=== PATIENT | female | born 1955 | race Caucasian/White ===

== ENCOUNTER 2021-07-05 09:05 | Emergency (ER) | payer OTHER, SELFPAY ==
[2021-07-05 09:10] VITALS: BP 129/79; PULSE 54; RESP 16; TEMP 36.6; O2SAT 98; BMI 25.0
--- NOTE | 2021-07-05 10:17 | ED.BACK ---
HPI - Back Pain/Injury General Chief Complaint: Back Pain/Injury Stated Complaint: hurt back x7 days Time Seen by Provider: 07/05/21 10:15 Source: patient and family History of Present Illness HPI Narrative: Patient is a 66-year-old female with early-onset dementia, diabetes presenting today with back pain for the last 3-5 days. She states that she was putting furniture sliders under furniture. She was on the ground when she lifted and tried to slide under there. Since then she has had back pain all across her lower lumbar area. She did not fall. She has no numbness or tingling in her lower extremities. No loss of bowel or bladder. She has not had fever or chills. She has been taking Tylenol ibuprofen home. She also has Flexeril and methocarbamol at home that do not seem to be helping. She has appointment with her primary care provider in 2 days. Related Data Previous Rx's Medication Instructions Recorded hydrocodone 5 mg-acetaminophen 325 1 tab PO Q6H PRN #10 tab 07/05/21 mg tablet Review of Systems Review of Systems Narrative: GENERAL: Denies chills, fatigue, malaise, fever, sweats, travel HEENT: Denies sinus pain, ear pain, sore throat, difficulty swallowing, neck pain RESPIRATORY: Denies dyspnea, cough, wheezing, hemoptysis, sputum. CARDIOVASCULAR: Denies chest pain, palpitations, orthopnea, edema GASTROINTESTINAL: Denies nausea, vomiting, abdominal pain, diarrhea, constipation, melena. : Denies dysuria, frequency, incontinence, hematuria, urinary retention, flank pain. MUSCULOSKELETAL: See HPI SKIN: No rash, no erythema, no pruritus NEUROLOGIC: Denies weakness, dizziness, headache, numbness, change in speech, confusion PSYCHIATRIC: No concerning psychosocial issues. 12 point review of systems is negative except for those stated above and HPI Patient History Social History Smoking Status: Never smoker Smoking Status: Never smoker alcohol intake frequency: holidays/special occasions only Substance Use Type: does not use Exam Initial Vital Signs Initial Vital Signs: Vital Signs Temperature 97.9 F 07/05/21 09:10 Pulse Rate 54 L 07/05/21 09:10 Respiratory Rate 16 07/05/21 09:10 Blood Pressure 129/79 07/05/21 09:10 Pulse Oximetry 98 07/05/21 09:10 GENERAL: Pleasant well-appearing 66 old female no acute distress CARDIOVASCULAR: peripheral pulses in tact, cap refill <2 sec RESPIRATORY: No respiratory distress, speaks in full sentences without difficulty BACK: No vertebral tenderness no step-off painful all cost lower lumbar area EXTREMITIES: Normal range of motion, no clubbing or edema. Neurovascularly intact NEUROLOGICAL: Cranial nerves II through XII grossly intact. Normal gait and speech. Sensation lower extremities intact SKIN: Warm, dry, no petechiae, no rashes or lesions. Course Orders Ordered: Discontinued Medications Ketorolac Tromethamine (Ketorolac 30 Mg/Ml Vial) 30 mg IM NOW ONE Stop: 07/05/21 10:27 Last Admin: 07/05/21 10:45 Dose: 30 mg Documented by: MICHAEL Vital Signs Vital signs: Vital Signs - 8 hr 07/05/21 09:10 07/05/21 11:00 Temperature 97.9 F Pulse Rate 54 L 54 L Respiratory Rate 16 18 Blood Pressure 129/79 125/75 Pulse Oximetry 98 94 MDM - Back Pain/Injury MDM Narrative Medical decision making narrative: Patient's symptoms are consistent with muscle strain and spasm. She did not fall. She has no focal deficits at this time no need for imaging. She has multiple muscle relaxants at home. Will not prescribe any more of those have her discuss with her primary about that but will give her some hydrocodone. Has appointment with her PCP in 2 days. Discharge Plan Departure Patient Disposition: Home Clinical Impression: Muscle spasm Instructions: DI for Back Spasm Activity Restrictions/Additional Instructions: *You have been diagnosed with muscle spasm *What to do: At this time light stretching and heating pad along with light massage. Try to increase activity as tolerated no strenuous activity or heavy lifting. If no improvement may require physical therapy or outpatient MRI *Continue to take medications as directed Ibuprofen 600 mg every 6 hours if needed for [id number] pain [place] 1 tablet every 6 hours if needed for severe pain *Follow up with your primary care provider in 2-3 days or call [phone] *Return to ER if you should have increasing pain numbness tingling or weakness of lower extremities loss of urine or stool or any new, worsening or concerning symptoms CONTROLLED SUBSTANCE DISCHARGE (Narcotoic/benzodiazepine/Flexeril/Phenergan) 1. You have been prescribed narcotic medications, it does have acetaminophen/Tylenol/paracetamol in it, DO NOT TAKE MORE THAN 4,00mg in 24 hours of Tylenol. TRAMADOL DOES NOT CONTAIN TYLENOL 2. Please understand that we cannot provide further refills of narcotics, benzodiazepines or controlled substances through the ED and her pain management will need to be through your provider. 3. While on these medications you cannot drive or operate heavy machinery. 4. You cannot sign legal documents or perform any duties such as this. 5. As long as you're taking opiate pain medications he should also be taking a stool softener such as Colace, Dulcolax, MiraLAX or prune juice, to help avoid constipation. Prescriptions: New hydrocodone-acetaminophen 5-325 mg tablet 1 tab PO Q6H PRN (Reason: pain) Qty: 10 0RF
[2021-07-05] MEDS: KETOROLAC 30 MG/ML VIAL IM (10:45)
[2021-07-05 11:00] VITALS: BP 125/75; PULSE 54; RESP 18; O2SAT 94
== END 2021-07-05 11:04 | disposition home or self-care (01) ==
PROVIDERS: Emergency Provider Emergency Medicine
DX: M62.830 Muscle spasm of back (principal); X50.0XXA Overexertion from strenuous movement or load, initial encounter
CPT/HCPCS: 96372; 99283; J1885

== ENCOUNTER 2022-01-20 10:27 | Observation (INO) | payer OTHER, SELFPAY ==
[2022-01-20] VITALS (12 sets, daily range): BP systolic 129–151; BP diastolic 55–67; PULSE 56–61; RESP 15–18; TEMP 36.9–37.3; O2SAT 94–99; BMI 24.2
--- NOTE | 2022-01-20 11:01 | ED_ITS ---
HPI - Fall General Chief Complaint: Fall Stated Complaint: GLF Time Seen by Provider: 01/20/22 11:01 Source: family and EMS Mode of arrival: EMS History of Present Illness HPI Narrative: Patient is a 66-year-old female. Arrived by EMS for evaluation of injuries that she sustained after she was found on the floor this morning. Patient's who states he sleeps in a different room because the patient sleeps in a chair found her lying on the ground this morning. She does have a known T12 spinal fracture from a prior fall. She was complaining of right wrist pain. Patient is unable to provide any history as to why she fell. She does seem somewhat confused about the situation. She knows she is in the hospital but not sure why she is here. She stated that she was sitting on the floor ?working on a project ?which is why she was on floor. The states the patient has no prior medical problems. There was 1 report that he had region that she has some history of dementia this is not specifically diagnosed in her problem list in the EMR. Related Data Previous Rx's Medication Instructions Recorded hydrocodone 5 mg-acetaminophen 325 1 tab PO Q6H PRN pain #10 tabs 07/05/21 mg tablet Allergies Allergy/AdvReac Type Severity Reaction Status Date / Time No Known Drug Allergies Allergy Verified 01/20/22 10:35 Review of Systems Constitutional Comments: Denies headache Eyes Comments: No changes in vision Cardiovascular Comments: Denies chest pain Respiratory Comments: Denies shortness of breath Gastrointestinal Comments: No abdominal pain Musculoskeletal Comments: Right wrist pain and back pain Integumentary/Breasts Skin/Breast: Reports system reviewed and no additional complaints, except as documented Hematologic/Lymphatic On Anticoagulants: No Patient History Medical History Dementia Diabetes Social History Smoking Status: Never smoker Smoking Status: Never smoker alcohol intake frequency: holidays/special occasions only Substance Use Type: does not use Exam Initial Vital Signs Initial Vital Signs: Vital Signs Temperature 98.9 F 01/20/22 10:35 Pulse Rate 56 L 01/20/22 10:35 Respiratory Rate 15 01/20/22 10:35 Blood Pressure 146/67 H 01/20/22 10:35 Pulse Oximetry 98 01/20/22 10:35 Oxygen Delivery Method 01/20/22 10:35 Const General: cooperative, comfortable and No ill appearing HENMT Head: contusion (Over right forehead and right temporal) Nose: external nose normal Mouth: oral mucosae normal Chest Chest: No crepitus and No tenderness Resp Effort & Inspection: normal respiratory effort Auscultation: clear to auscultation bilaterally Cardio Rate: regular rate Rhythm: regular rhythm GI Inspection: normal to inspection Back/Spine/Pelvis Other: Tenderness in the lower thoracic region Skin Other: Bruising over right forehead and right temporal Neuro Other: Alert to person. She knows that she is in the hospital but does not know what city. She does know the year. Does not know the situation as to why she is here. Extrem General: normal to inspection, capillary refill normal and No edema Other: Discomfort with palpation of the right wrist Scores GCS Hamilton coma scale eye opening: Spontaneous Hamilton coma scale verbal response: Confused Hamilton coma scale motor response: Obey commands Hamilton coma scale total score: 14 Course Orders Ordered: ED Orders 01/20/22 10:35 Complete Blood Count AUTO DIFF Stat Comprehensive Metabolic Panel Stat Lipase Stat 01/20/22 11:01 CT head/brain wo con Stat 01/20/22 12:01 XR thoracic spine 3V Stat XR wrist RT min 3V Stat 01/20/22 12:05 XR hip w pel if done RT 2V Stat 01/20/22 14:04 EKG-12 Lead Stat 01/20/22 14:05 CK [Creatine Kinase] Stat Vital Signs Vital signs: Vital Signs - 8 hr 01/20/22 10:35 01/20/22 11:24 01/20/22 11:26 Temperature 98.9 F Pulse Rate 56 L 56 L Respiratory Rate 15 Blood Pressure 146/67 H 140/64 Pulse Oximetry 98 97 Oxygen Delivery Method Room Air 01/20/22 11:26 01/20/22 11:30 01/20/22 11:30 Temperature Pulse Rate 58 L 56 L Respiratory Rate Blood Pressure 131/61 Pulse Oximetry 99 99 Oxygen Delivery Method 01/20/22 11:45 01/20/22 11:45 01/20/22 12:50 Temperature Pulse Rate 56 L 58 L Respiratory Rate Blood Pressure 129/60 Pulse Oximetry 97 97 Oxygen Delivery Method 01/20/22 12:52 01/20/22 12:52 01/20/22 13:00 Temperature Pulse Rate 57 L Respiratory Rate Blood Pressure 140/63 138/63 Pulse Oximetry 98 Oxygen Delivery Method 01/20/22 13:00 01/20/22 13:15 01/20/22 13:15 Temperature Pulse Rate 58 L 57 L Respiratory Rate Blood Pressure 136/63 Pulse Oximetry 96 96 Oxygen Delivery Method MDM - Fall Lab Data Attestation: I reviewed the patient's lab results. Result diagrams: 01/20/22 10:35 01/20/22 10:35 Labs: Lab Results 01/20/22 01/20/22 Range/Units 10:35 10:35 WBC 13.1 H (4.5-11.0) X10^3/uL RBC 4.54 (4.0-5.2) X10^6/uL Hgb 14.5 (12.0-16.0) g/dL Hct 43.7 (36-46) % MCV 96.4 (80-100) fL MCH 31.9 (26-34) PG MCHC 33.1 (30-36) % RDW 12.8 (11.6-14.8) % Plt Count 200 (150-400) X10^3/uL Neut % (Auto) 84.9 H (50-75) % Lymph % (Auto) 8.2 L (25-40) % [place] % (Auto) 6.7 (3-14) % Eos % (Auto) 0.1 L (2-4) % Baso % (Auto) 0.1 (0-2) % Neut # (Auto) 43979 H (0438-0411) /uL Lymph # (Auto) 1100 (2712-1706) /uL [place] # (Auto) 900 (0-900) /uL Eos # (Auto) 0 (0-450) /uL Baso # (Auto) 0 (0-100) /uL Sodium 142 (137-145) mmol/L Potassium 4.0 (3.4-5.1) mmol/L Chloride 102 (98-107) mmol/L Carbon Dioxide 29 (22-32) mmol/L BUN 11 (7-17) mg/dL Creatinine 0.57 (0.52-1.04) mg/dL Estimated GFR > 60 (>60) mL/min BUN/Creatinine Ratio 19.3 (6-22) Glucose 176 H (80-110) mg/dL Calcium 10.1 (8.4-10.2) mg/dL Total Bilirubin 1.0 (0.2-1.3) mg/dL AST 43 H (14-36) IU/L ALT 34 (<35) IU/L Alkaline Phosphatase 75 (38-126) U/L Total Protein 7.7 (6.3-8.2) g/dL Albumin 4.6 (3.5-5.0) g/dL Globulin 3.1 (1.7-4.1) g/dL Albumin/Globulin Ratio 1.5 (1.0-2.8) Lipase 78 (23-300) U/L Imaging Data CT scan - head: Radiologist's Impression: [address] [address] [address] Scan Report Signed Patient: Sal Shaver MR#: [id number] : 1955 Acct:[id number] Age/Sex: 66 / F Date of Service: 01/20/22 Loc: ED Accession Number: [id number] ?? Procedure: CT head/brain wo con Ordering Provider: Bro Barreto D.O. PROCEDURE:? CT HEAD/BRAIN WO CON ? INDICATIONS:? fall right frontal contusion ? TECHNIQUE:? Noncontrast 4.5 mm thick angled axial sections acquired from the foramen magnum to the vertex, with coronal and sagittal reformats.? For radiation dose reduction, the following was used:? automated exposure control, adjustment of mA and/or kV according to patient size.? ? COMPARISON:? None. ? FINDINGS:? Image quality:? Excellent.? ? CSF spaces:? Basal cisterns are patent.? No extra-axial fluid collections.? The ventricles are symmetric in size and shape.? ? Brain:? No intracranial bleeds or masses.? There is cerebral volume loss for age, with resultant ventricular and sulcal prominence.? There are periventricular and deep white matter chronic small vessel ischemic changes.? There is intracranial internal carotid artery atherosclerosis.? ? Skull and face:? There is a right temporal region scalp hematoma seen.? No underlying calvarial fracture can be seen.? Calvarium and visualized facial bones appear intact, without suspicious lesions.? Incidental note is made of hyperostosis frontalis. This is not considered to be pathologic in a woman of this age. ? Sinuses:? Visualized sinuses and mastoids are clear.? IMPRESSION:? Right scalp hematoma, without an associated fracture. ? No acute intracranial hemorrhage is seen.? ? No acute intracranial process is seen.? ? Note is made of age-appropriate brain parenchymal volume loss and chronic small vessel ischemic changes. ? ? Dictated by: Santiago Silva M.D. on 01/20/2022 at 10:15 ? ? Approved by: Santiago Silva M.D. on 01/20/2022 at 10:16? Extremity x-ray #1: Radiologist's Impression: [address] [address] XRay Report Signed Patient: Sal Shaver MR#: [id number] : 1955 Acct:[id number] Age/Sex: 66 / F Date of Service: 01/20/22 Loc: ED Accession Number: [id number] ?? Procedure: XR wrist RT min 3V Ordering Provider: Bro Barreto D.O. PROCEDURE:? XR WRIST RT MIN 3V ? INDICATIONS: pain after fall ? TECHNIQUE:? 4 views of the wrist were acquired.? ? COMPARISON:? None. ? FINDINGS:? ? Bones:? No fractures or dislocations.? No suspicious bony lesions.? Distal radial fixation hardware is intact. ? Scaphoid view:? The scaphoid is intact. ? Soft tissues:? No suspicious soft tissue calcifications.? ? IMPRESSION:? No acute radiographic findings. If pain persists, followup imaging in 5-7 days is recommended to exclude occult fracture. ? ? Dictated by: Siomara Fisher M.D. on 01/20/2022 at 13:22 ? ? Approved by: Siomara Fisher M.D. on 01/20/2022 at 13:22? Extremity x-ray #2: Radiologist's Impression: [address] [address] XRay Report Signed Patient: Sal Shaver MR#: [id number] : 1955 Acct:[id number] Age/Sex: 66 / F Date of Service: 01/20/22 Loc: ED Accession Number: [id number] ?? Procedure: XR hip w pel if done RT 2V Ordering Provider: Bro Barreto D.O. PROCEDURE:? XR HIP W PEL IF DONE RT 2V ? INDICATIONS:? hip pain after fall ? TECHNIQUE:? AP pelvis with lateral view(s) of the right hip(s).? ? COMPARISON:? None. ? FINDINGS:? ? Bones:? No fractures or dislocations.? Pelvic ring appears intact.? No suspicious bony lesions.? ? Soft tissues:? The visualized bowel gas pattern is normal.? No suspicious soft tissue calcifications.? ? ? IMPRESSION:? No acute radiographic findings.? If pain persists, consider CT of the pelvis to exclude occult fracture. ? Dictated by: Siomara Fisher M.D. on 01/20/2022 at 13:19 ? ? Approved by: Siomara Fisher M.D. on 01/20/2022 at 13:19? t spine: Radiologist's Impression: [place] [address] XRay Report Signed Patient: Sal Shaver MR#: [id number] : 1955 Acct:[id number] Age/Sex: 66 / F Date of Service: 01/20/22 Loc: ED Accession Number: [id number] ?? Procedure: XR thoracic spine 3V Ordering Provider: Bro Barreto D.O. PROCEDURE:? XR THORACIC SPINE 3V ? INDICATIONS:? known t spine fx with increase pain after fall ? TECHNIQUE:? 3 views of the thoracic spine were acquired.? ? COMPARISON:? None. ? FINDINGS:? ? Bones:? There are 12 pairs of ribs.? Anterior wedging is present at the T12 vertebral body with approximately 36% vertebral body height loss.? There is diffuse intervertebral disc space narrowing and endplate sclerosis. ? Soft tissues:? No paravertebral stripe thickening.? ? ? IMPRESSION:? ? 1. Degenerative change. ? 2. Anterior wedging at T12.? The acuity of this finding is unknown without prior comparison studies.? Acute compression deformity could be considered in the differential diagnosis if the patient reports focal pain in this region.? ? ? Dictated by: Siomara Fisher M.D. on 01/20/2022 at 13:19 ? ? Approved by: Siomara Fisher M.D. on 01/20/2022 at 13:21?? MDM Narrative Medical decision making narrative: Somewhat of a confusing story as to how she fell. The patient does not remember. She is a contusion right forehead and right zoroastrianism. X-rays here in the emergency department is unremarkable. She does have the T12 spinal fracture which is not new from this visit today. Attempted to stand the patient at bedside. She was able to stand but seemed to be very uneasy with standing and seems to be somewhat confused about what we are asking her to do and even to take a few steps. This is new for the patient. Unsure if this is her underlying early dementia or potentially a concussion but the states this is not normal for her. I did discuss the case with Dr. Schroeder on-call for Hospital Medicine who will admit. Discussed the need for admission with the patient's who expressed understanding and agreement. Discharge Plan Departure Patient Disposition: Admitted as Observation Clinical Impression: Closed head injury, Concussion, Forehead contusion, Confusion, Compression fracture of T12 vertebra Admit Date/Time: 01/20/22 14:06 Admit Provider: [place] Schroeder
--- NOTE | 2022-01-20 11:01 | DI.CT.S_ITS ---
PROCEDURE: CT HEAD/BRAIN WO CON INDICATIONS: fall right frontal contusion TECHNIQUE: Noncontrast 4.5 mm thick angled axial sections acquired from the foramen magnum to the vertex, with coronal and sagittal reformats. For radiation dose reduction, the following was used: automated exposure control, adjustment of mA and/or kV according to patient size. COMPARISON: None. FINDINGS: Image quality: Excellent. CSF spaces: Basal cisterns are patent. No extra-axial fluid collections. The ventricles are symmetric in size and shape. Brain: No intracranial bleeds or masses. There is cerebral volume loss for age, with resultant ventricular and sulcal prominence. There are periventricular and deep white matter chronic small vessel ischemic changes. There is intracranial internal carotid artery atherosclerosis. Skull and face: There is a right temporal region scalp hematoma seen. No underlying calvarial fracture can be seen. Calvarium and visualized facial bones appear intact, without suspicious lesions. Incidental note is made of hyperostosis frontalis. This is not considered to be pathologic in a woman of this age. Sinuses: Visualized sinuses and mastoids are clear. IMPRESSION: Right scalp hematoma, without an associated fracture. No acute intracranial hemorrhage is seen. No acute intracranial process is seen. Note is made of age-appropriate brain parenchymal volume loss and chronic small vessel ischemic changes. Dictated by: Santiago Silva M.D. on 01/20/2022 at 10:15 Approved by: Santiago Silva M.D. on 01/20/2022 at 10:16
[2022-01-20 11:19] LABS: Add Manual Diff / Slide Review NO; Basophils Absolute Auto 0 /uL (0-100); Basophils Percent Auto 0.1 % (0-2); Eosinophils Absolute Auto 0 /uL (0-450); Eosinophils Percent Auto 0.1 % (2-4); Hematocrit 43.7 % (36-46); Hemoglobin 14.5 g/dL (12.0-16.0); Lymphocytes Absolute Auto 1100 /uL (1100-4500); Lymphocytes Percent Auto 8.2 % (25-40); Mean Corpuscular HGB Conc 33.1 % (30-36); Mean Corpuscular Hemoglobin 31.9 PG (26-34); Mean Corpuscular Volume 96.4 fL (80-100); Monocytes Absolute Auto 900 /uL (0-900); Monocytes Percent Auto 6.7 % (3-14); Neutrophils Absolute Auto 11100 /uL (1500-7000); Neutrophils Percent Auto 84.9 % (50-75); Platelet Count 200 X10^3/uL (150-400); Red Blood Cell Count 4.54 X10^6/uL (4.0-5.2); Red Cell Distribution Width 12.8 % (11.6-14.8); White Blood Cell Count 13.1 X10^3/uL (4.5-11.0)
[2022-01-20 11:32] LABS: Alanine Aminotransferase 34 IU/L (<35); Albumin 4.6 g/dL (3.5-5.0); Albumin Globulin Ratio 1.5 (1.0-2.8); Alkaline Phosphatase 75 U/L (38-126); Aspartate Aminotransferase 43 IU/L (14-36); BUN Creatinine Ratio 19.3 (6-22); Blood Urea Nitrogen 11 mg/dL (7-17); Calcium 10.1 mg/dL (8.4-10.2); Carbon Dioxide 29 mmol/L (22-32); Chloride 102 mmol/L (98-107); Estimated Glomerular Filt Rate > 60 mL/min (>60); Globulin 3.1 g/dL (1.7-4.1); Glucose 176 mg/dL (80-110); HEMOLYSIS < 15 (0-50); Lipase 78 U/L (23-300); Sodium 142 mmol/L (137-145); Total Protein 7.7 g/dL (6.3-8.2)
--- NOTE | 2022-01-20 12:01 | DI.RAD.S_ITS ---
PROCEDURE: XR THORACIC SPINE 3V INDICATIONS: known t spine fx with increase pain after fall TECHNIQUE: 3 views of the thoracic spine were acquired. COMPARISON: None. FINDINGS: Bones: There are 12 pairs of ribs. Anterior wedging is present at the T12 vertebral body with approximately 36% vertebral body height loss. There is diffuse intervertebral disc space narrowing and endplate sclerosis. Soft tissues: No paravertebral stripe thickening. IMPRESSION: 1. Degenerative change. 2. Anterior wedging at T12. The acuity of this finding is unknown without prior comparison studies. Acute compression deformity could be considered in the differential diagnosis if the patient reports focal pain in this region. Dictated by: Siomara Fisher M.D. on 01/20/2022 at 13:19 Approved by: Siomara Fisher M.D. on 01/20/2022 at 13:21
--- NOTE | 2022-01-20 12:01 | DI.RAD.S_ITS ---
PROCEDURE: XR WRIST RT MIN 3V INDICATIONS: pain after fall TECHNIQUE: 4 views of the wrist were acquired. COMPARISON: None. FINDINGS: Bones: No fractures or dislocations. No suspicious bony lesions. Distal radial fixation hardware is intact. Scaphoid view: The scaphoid is intact. Soft tissues: No suspicious soft tissue calcifications. IMPRESSION: No acute radiographic findings. If pain persists, followup imaging in 5-7 days is recommended to exclude occult fracture. Dictated by: Siomara Fisher M.D. on 01/20/2022 at 13:22 Approved by: Siomara Fisher M.D. on 01/20/2022 at 13:22
--- NOTE | 2022-01-20 12:05 | DI.RAD.S_ITS ---
PROCEDURE: XR HIP W PEL IF DONE RT 2V INDICATIONS: hip pain after fall TECHNIQUE: AP pelvis with lateral view(s) of the right hip(s). COMPARISON: None. FINDINGS: Bones: No fractures or dislocations. Pelvic ring appears intact. No suspicious bony lesions. Soft tissues: The visualized bowel gas pattern is normal. No suspicious soft tissue calcifications. IMPRESSION: No acute radiographic findings. If pain persists, consider CT of the pelvis to exclude occult fracture. Dictated by: Siomara Fisher M.D. on 01/20/2022 at 13:19 Approved by: Siomara Fisher M.D. on 01/20/2022 at 13:19
[2022-01-20 14:47] LABS: COVID19 -Nasal RAPID Negative (Negative)
[2022-01-20 15:21] LABS: Troponin I < 0.012 ng/mL (0.01-0.034)
[2022-01-20 15:26] LABS: Prolactin 4.4 ng/mL (3.0-18.6)
--- NOTE | 2022-01-20 15:28 | DI.MRI.S_ITS ---
PROCEDURE: MR HEAD/BRAIN WO CON INDICATIONS: encephalopathy TECHNIQUE: Non-contrast axial T1 spin echo, axial T2 fast spin echo, sagittal and axial FLAIR, coronal T2 fast spin echo, axial gradient echo, axial diffusion and ADC through the brain. COMPARISON: None. FINDINGS: Image quality: Excellent. CSF spaces: Ventricles appear symmetric in size and shape. Basal cisterns are patent. No extra-axial fluid collections. Brain: No intracranial bleeds or mass effects. There is cerebral volume loss for age. There are periventricular and deep white matter chronic small vessel ischemic changes. Brainstem appears normal. Diffusion-weighted images show no acute ischemic insults. No chronic ischemic insults. Normal intravascular flow voids are present. Skull and face: Calvarial bone marrow is normal in signal. Orbits are normal. Sinuses: Sinuses and mastoids are clear. IMPRESSION: No acute intracranial abnormality. Global cerebral volume loss and chronic microvascular ischemic changes, both advanced for age and overall moderate to severe. Dictated by: Lyndon Ward M.D. on 01/21/2022 at 11:09 Approved by: Lyndon Ward M.D. on 01/21/2022 at 11:22
[2022-01-20 15:41] LABS: TSH w/ Reflex to FT4 0.71 uIU/mL (0.47-4.68)
--- NOTE | 2022-01-20 15:55 | PT.IIE ---
Medical History (Last Updated 01/20/22 @ 16:19 by Petra Naqvi RN) Aortic valve stenosis, mild Dementia Diabetes Dyslipidemia Environmental allergies Intractable headache Memory loss Migraines Obstructive sleep apnea Right-sided low back pain with sciatica Spondylarthritis Type 2 diabetes mellitus with hyperglycemia, without long-term current use of insulin Physical Therapy Inpatient Evaluation/Re-Eval M1 PT/OT-IP Prior Functional Status Start: 01/20/22 16:31 Freq: NEEDED Status: Active Protocol: Document 01/20/22 15:55 AB (Rec: 01/20/22 16:47 AB [id number]) Medical Review Prior Functional Status Medical History Reviewed Yes Communication able to make needs known Mobility and Gait pt stated that she is independent with all mobilities and ambulation without AD. per spouse: pt had back compression fracture ~ 6 months ago and since then, has been sleeping on a recliner chair. Social History Household Members spouse Living Arrangements Apartment/Condo Number of Floors (Floors) One Floor Number of Stairs To Enter/Railing? pt lives in a basement house/ apartment with one step to enter Home Environment Standard Height Toilet,Walk in Shower Home Equipment Hand Held Shower Additional Social History Comment spouse stated that he cannot assist pt due to his back issues has a rocker recliner chair M2 PT-IP Current Condition Start: 01/20/22 16:31 Freq: NEEDED Status: Active Protocol: Document 01/20/22 15:55 AB (Rec: 01/20/22 16:47 AB [id number]) Physical Therapy Current Condition Current Condition Evaluation Date 01/20/22 Treatment Diagnosis s/p fall; concussion; difficulty in walking Onset Date 01/20/22 M3 PT-IP Subjective Start: 01/20/22 16:31 Freq: NEEDED Status: Active Protocol: Document 01/20/22 15:55 AB (Rec: 01/20/22 16:47 AB [id number]) Subjective Physical Therapy Visit Type Type Initial Evaluation Visit Start Time 15:55 Visit Stop Time 16:26 Total Visit Minutes 31 Number of PERSONAL COACH Visits 0 Physical Therapy Visit Comments Patient Comments agreeable to do PT Therapy Pain Assessment Pain When Pain Assessed At Rest Pain Present Pain Present Pain Reported Location Generalized Intensity 10 Scale Used Numeric (0 - 10) Pain Management Techniques Distraction,Modification of Treatment,Re-positioning M4 PT-IP Mobility and Gait Start: 01/20/22 16:31 Freq: NEEDED Status: Active Protocol: Document 01/20/22 15:55 AB (Rec: 01/20/22 16:47 AB [id number]) PT-Bed Mobility Assessment Rolling Type of Rolling Log Rolling Level of Assist Maximal Assistance Supine to Sit Supine to Sit Maximum Assistance,1 Person Assistance,2 Person Assistance Sit to Supine Sit to Supine Maximum Assistance,2 Person Assistance Scooting Scooting to Edge of Bed Maximum Assistance PT-Transfer Assessment Sit to and From Stand Sit to and from Stand Maximum Assistance,1 Person Assistance,2 Person Assistance ,Use of Upper Extremities Equipment Transfer Assistive Device Gait Belt,Front Wheeled Walker Orthotic/Prosthetic Devices or Brace: No Comments Mobility Comments spouse in room with pt. pt c/ o overall body pain with more emphasis on R wrist. spouse stated that pt had previous wrist surgery with implant ~ 30 years ago. pt also had T12 compression fracture ~ 6 months ago. spouse also stated that pt has memory issues. informed pt regarding back precautions. BP in supine: 151/71. completed supine to sit log roll max a x 1-2 and max cues. able to sit on EOB min A. completed sit to stand max A x 1-2 and max cues but unable to tolerate much standing and sat back on EOB after ~ 5 sec. pt attempted to scoot towards HOB but unable. agreed to stand again and take steps towards HOB. completed sit to stand max A x 2 and max cues. max A x 2 and max cues for side stepping towards HOB using FWW. max cues with all tasks. completed log roll sit to supine max A x 2 and max cues. max A x 2 for positioning in bed. call light and table placed within reach. Gait Assessment Comments Gait Comments side stepping towards HOB for positioning max A x 2 using FWW PT-Balance Assessment Sitting Balance and Reactions Static Sitting Balance Ability Fair Dynamic Sitting Balance Ability Fair Standing Balance and Reactions Static Standing Balance Ability Poor Dynamic Standing Balance Ability Poor Device Used FWW M5 PT-IP Objective Assessments Start: 01/20/22 16:31 Freq: NEEDED Status: Active Protocol: Document 01/20/22 15:55 AB (Rec: 01/20/22 16:47 AB [id number]) Orientation Orientation/Cognition Level of Alertness Confusional State Orientation Name Language Function Ability Hard of Hearing Safety Awareness Decreased Safety Awareness Memory Description Short Term Impaired,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 Impaired Gross Range of Motion Lower Extremity ROM Assessment Bilaterally Impaired Impairments pain limiting movement Strength Lower Extremity Strength Hip 3+/5 Knee 3+/5 Sensation Assessment Sensation Gross Sensation Right UE Impaired,Left UE Impaired Sensation Description Numbness Muscle Tone Muscle Tone WNL Yes M6 PT-IP Treatment Start: 01/20/22 16:31 Freq: NEEDED Status: Active Protocol: Document 01/20/22 15:55 AB (Rec: 01/20/22 16:47 [email or web address] Therapy Treatment Education Education Provided Precautions,Safety M7 PT-IP Assessment and Plan Start: 01/20/22 16:31 Freq: NEEDED Status: Active Protocol: Document 01/20/22 15:55 AB (Rec: 01/20/22 16:47 AB [email or web address]) PT Summary Assessment and Plan Potential Rehabilitation Potential Fair Status of Condition at Evaluation Evolving Summary Impairments Pain,ROM,Strength,Balance, Coordination,Sensation,Tone, Cognition,Bed Mobility, Transfers,Gait,Activity Tolerance Assessment Summary Pt s/p fall and c/o generalized pain of 11/30. Imaging results unremarkable aside from T12 compression fracture and per pt's spouse, pt had for at least 6 months. pt requiring max A x 2 with mobility using FWW and with c/ o increase pain affecting mobility level and activity tolerance. pt will not have assistance at home as spouse will not be able to assist due to his back issues. pt at this time will require SNF rehab. will continue to assess progress. Goals Bed Mobility Goal Minimal Assistance Transfer Goal Minimal Assistance,Front Wheeled Walker Gait Goal Minimal Assistance,Front Wheel Walker Gait Distance 30 Other Goals improve bed mobility, transfers and ambulation using FWW/least restrictive AD/ without AD 100 ft SBA up/down 1 steps using AD SBA Days to Meet Goals 10 Frequency of Treatment Frequency Of Treatment Once a Day Treatment Plan Physical Therapy Treatment Plan Bed Mobility Training,Transfer Training,Gait Training, Therapeutic Exercise,Balance Retraining,Discharge Planning, Hot or Cold Pack,Neuromuscular Re-ed,Coordination Retraining ,Manual Therapy Precautions Lumbar Precautions Log Roll,No Twisting,Limit Bending,Lifting Restriction of 10 lbs,Gait Belt above Incisional Area Other Precautions falls Recommendations To Nursing Amount of Assist Needed PT/OT Assist Only,Mechanical Lift Discharge Recommendations PT Discharge Recommendations SNF Rehab Equipment Needed for Home Before FWW if pt goes home Discharge Transportation Needs at Discharge Wheelchair/Cabulance,Stretcher /Ambulance
--- NOTE | 2022-01-20 16:31 | DI.ECHO.S_ITS ---
Interpretation Summary The study quality was technically difficult. Diastolic parameters suggest probable normal left ventricular diastolic function and normal filling pressures. The right ventricle is normal in size and function. The left atrium is mildly dilated. There is moderate aortic stenosis. Pulmonary artery pressures cannot be estimated because of the lack of a measurable TR jet velocity. Procedure: A two-dimensional transthoracic echocardiogram with color flow and Doppler was performed. There is no prior echocardiogram noted for this patient. Best from Apical window. The study quality was technically difficult. The patient was in sinus rhythm with heart rates between 53-64 bpm during the exam. Left Ventricle: The left ventricle is normal in size and wall thickness. The ejection fraction is estimated to be 70-75%. Diastolic parameters suggest probable normal left ventricular diastolic function and normal filling pressures. Right Ventricle: The right ventricle is normal in size and function. Atria: The left atrium is mildly dilated. Right atrial size is normal. There is no Doppler evidence for an interatrial shunt. Mitral Valve: There is moderate mitral annular calcification. The mitral valve leaflets appear mildly thickened, but open well. There is trace mitral regurgitation. Aortic Valve: The aortic valve is moderately calcified. There is moderate aortic stenosis. The peak aortic velocity is 3.2 m/sec. The aortic valve mean gradient is 21 mmHg. The calculated aortic valve area is 1.5 cm2. No aortic regurgitation is present. Tricuspid Valve: The tricuspid valve is normal in structure and function. There is a trace or physiologic amount of tricuspid regurgitation. Pulmonary artery pressures cannot be estimated because of the lack of a measurable TR jet velocity. Pulmonic Valve: The pulmonic valve is not well visualized. Great Vessels: The aortic root is not well visualized. The ascending aorta could not be visualized. The IVC is of normal diameter and collapses greater than 50% with a sniff. This suggests a low right atrial pressure of 3 mm Hg. Pericardium/ Pleura There is no pericardial effusion. There is no pleural effusion. MMode/2D Measurements & Calculations LVIDd: 4.0 cm LVOT diam: 2.2 cm LVIDs: 2.7 cm Ao Arch Diam (Prox Trans): 2.4 cm FS: 32.5 % IVSd: 0.89 cm LVPWd: 0.64 cm LV santa. diameter/BSA (cm/m^2): 2.3 LV sys. diameter/BSA (cm/m^2): 1.5 LA A2 area: 20.7 cm2 RA long axis: 4.8 cm LA A4 area: 18.1 cm2 RA area: 13.5 cm2 LA length (vol): 5.6 cm RA vol: 32.5 ml LA vol: 56.6 ml RA : 18.4 ml/m2 LA vol index: 32.0 ml/m2 IVC diam: 1.7 cm RVD1 (basal): 3.4 cm RVD2 (mid): 3.3 cm TAPSE: 2.7 cm Doppler Measurements & Calculations Ao V2 max: 317.3 cm/sec LVOT Max Ray: 129.1 cm/sec Ao V2 mean: 203.9 cm/sec LV V1 max P.7 mmHg Ao max P.3 mmHg LV V1 VTI: 32.2 cm Ao mean P.4 mmHg DIPAK(I,D): 1.7 cm2 Ao V2 VTI: 72.1 cm DIPAK(V,D): 1.5 cm2 sev ratio: 0.45 DIPAK indexed to BSA (cm^2/m^2): 0.96 MV E max ray: 121.3 cm/sec TR max ray: 219.8 cm/sec MV A max ray: 146.8 cm/sec TR max P.3 mmHg MV E/A: 0.83 Med Peak E' Ray: 8.7 cm/sec E/E' med: 14.0 Lat Peak E' Ray: 8.8 cm/sec E/E' lat: 13.8 E/e' average: 13.9 MV dec time: 0.31 sec MVA(VTI): 2.1 cm2 MV V2 mean: 79.7 cm/sec SV(LVOT): 122.1 ml MV mean P.0 mmHg MV V2 VTI: 57.6 cm Reading Physician:05:37 PM
[2022-01-20 16:52] LABS: Creatine Kinase 91 U/L (30-135)
--- NOTE | 2022-01-20 18:00 | DI.RAD.S_ITS ---
PROCEDURE: XR CHEST 1V INDICATIONS: confusion, pna? TECHNIQUE: One view of the chest was acquired. COMPARISON: None. FINDINGS: Surgical changes and devices: None. Lungs and pleura: Lungs are clear. No pleural effusions or pneumothorax. Mediastinum: Mediastinal contours appear normal. Heart size is normal. Bones and chest wall: No suspicious bony lesions. Overlying soft tissues appear unremarkable. IMPRESSION: No acute cardiopulmonary disease. Dictated by: Yarely Boyer M.D. on 01/20/2022 at 21:27 Approved by: Yarely Boyer M.D. on 01/20/2022 at 21:29
--- NOTE | 2022-01-20 18:17 | PM.HP.1 ---
History of Present Illness History of Present Illness Date Patient Seen: 01/20/22 Time Patient Seen: 16:00 Chief complaint: GLF Narrative: Ms. Shaver is a 66W with PMH documented in chart of dementia, diabetes, and mild aortic valve stenosis who presents to the hospital after being found on the ground. Patient is not able to tell me any history of how or when she fell. Per report from family and the ED she and her sleep in separate rooms. When he checked on her today she was on the floor. She has a contusion to her head. She was otherwise denying any significant symptoms with no chest pain, shortness of breath, fevers, chills. She is unable to tell me her medical history when asked In the ED, workup was done vitals notable for afebrile, bradycardic in the 50s. EKG not done. Labs notable for WBC of 13, creatinine 0.57. Glucose 176. Trop negative. CK 91. TSH 0.71, prolactin 4.4. UA negative. Chest xray ordered and pending final read. CT head with no acute process. Hip, wrist, and thoracic spine xray with no acute process. She was admitted for further workup. Family history: patient acutely encephalopathic and unable to provide Social history: denies smoking, drinking, other substance use Patient History Medical History Aortic valve stenosis, mild Dementia Diabetes Dyslipidemia Environmental allergies Intractable headache Memory loss Migraines Obstructive sleep apnea Right-sided low back pain with sciatica Spondylarthritis Type 2 diabetes mellitus with hyperglycemia, without long-term current use of insulin Family & Social History Social History: household members spouse Prior Living Arrangements Apartment/Condo Safety & Behavioral: Feels Safe in Current Yes Environment Been Physically Hurt or No Threatened By a Person Tobacco & Substance use: Smoking Status Never smoker alcohol intake frequency holiday/special occasion Substance Use Type does not use Meds Home Medications and Allergies Home Medications Medication Instructions Recorded Confirmed Type aspirin 81 mg tablet,delayed 81 mg PO DAILY 01/20/22 01/20/22 History release chromium 100 mcg tablet 100 mcg PO DAILY 01/20/22 01/20/22 History cyanocobalamin (vitamin B-12) 1,000 mcg PO DAILY 01/20/22 01/20/22 History 1,000 mcg tablet diclofenac sodium 1 % topical gel 4 g topical QID PRN Pain (Scale 01/20/22 01/20/22 History Score 1-3) donepezil 10 mg tablet 10 mg PO BEDTIME 01/20/22 01/20/22 History flaxseed oil 1,000 mg capsule 1,000 mg PO DAILY 01/20/22 01/20/22 History hydrocodone 7.5 mg-acetaminophen 1 tab PO Q8H PRN Pain (Scale Score 01/20/22 01/20/22 History 325 mg tablet 1-3) melatonin 5 mg tablet 5 mg PO BEDTIME PRN Sleep 01/20/22 01/20/22 History metformin 500 mg tablet,extended 500 mg PO QPM 01/20/22 01/20/22 History release 24 hr methocarbamol 500 mg tablet 1,000 mg PO TID PRN Muscle Spasm 01/20/22 01/20/22 History multivitamin with iron-mineral 1 tab PO DAILY 01/20/22 01/20/22 History omega-3 fatty acids-fish oil 684 1 cap PO DAILY 01/20/22 01/20/22 History mg-1,200 mg capsule,delayed release propranolol 20 mg tablet 20 mg PO BID 01/20/22 01/20/22 History sumatriptan succinate 100 mg 100 mg PO Q2-4H PRN Migraine 01/20/22 01/20/22 History tablet (Imitrex) Headache Allergies Allergy/AdvReac Type Severity Reaction Status Date / Time gabapentin Allergy Intermediate Vomiting Verified 01/20/22 16:20 Review of Systems Review of Systems Narrative: 14 systems reviewed and negative aside from what is noted in HPI Exam Vital Signs (past 8 hours): - 01/20/22 12:50 01/20/22 12:52 01/20/22 12:52 Temperature Pulse Rate 58 L 57 L Respiratory Rate Blood Pressure 140/63 Pulse Oximetry 97 98 Oxygen Delivery Method Oxygen Flow Rate 01/20/22 13:00 01/20/22 13:00 01/20/22 13:15 Temperature Pulse Rate 58 L Respiratory Rate Blood Pressure 138/63 136/63 Pulse Oximetry 96 Oxygen Delivery Method Oxygen Flow Rate 01/20/22 13:15 01/20/22 14:59 01/20/22 15:39 Temperature 99.1 F Pulse Rate 57 L 61 Respiratory Rate 18 Blood Pressure 136/55 L Pulse Oximetry 96 98 Oxygen Delivery Method Room Air Oxygen Flow Rate 01/20/22 18:46 Temperature 99.1 F Pulse Rate 61 Respiratory Rate 18 Blood Pressure 136/55 L Pulse Oximetry 98 Oxygen Delivery Method Oxygen Flow Rate 0 Oxygen Delivery Method Room Air Oxygen Flow Rate 0 Narrative Exam Narrative: GEN: confused HEENT: moist mucous membranes, PERRL NECK: trachea midline, no JVD PULM: clear bilaterally, no wheezes, rhonchi rales CV: regular rate and rhythm, harsh systolic murmurs ABD: soft, nontender, nondistended, no organomegaly EXT: warm and well perfused with no edema NEURO: confused, not clear on where she is or the date, follows commands, distractable, no focal deficits noted, normal upper and lower extremity strength, sensation intact Objective Labs Result Diagrams: 01/20/22 10:35 01/20/22 10:35 Labs: Laboratory Results - last 24 hr 01/20/22 01/20/22 01/20/22 10:35 10:35 14:26 WBC 13.1 H RBC 4.54 Hgb 14.5 Hct 43.7 MCV 96.4 MCH 31.9 MCHC 33.1 RDW 12.8 Plt Count 200 Neut % (Auto) 84.9 H Lymph % (Auto) 8.2 L [place] % (Auto) 6.7 Eos % (Auto) 0.1 L Baso % (Auto) 0.1 Neut # (Auto) 39047 H Lymph # (Auto) 1100 [place] # (Auto) 900 Eos # (Auto) 0 Baso # (Auto) 0 Sodium 142 Potassium 4.0 Chloride 102 Carbon Dioxide 29 BUN 11 Creatinine 0.57 Estimated GFR > 60 BUN/Creatinine Ratio 19.3 Glucose 176 H Calcium 10.1 Total Bilirubin 1.0 AST 43 H ALT 34 Alkaline Phosphatase 75 Total Creatine Kinase Troponin I Total Protein 7.7 Albumin 4.6 Globulin 3.1 Albumin/Globulin Ratio 1.5 Lipase 78 TSH Prolactin Urine Color Urine Appearance Urine pH Ur Specific [place] Urine Protein Urine Glucose (UA) Urine Ketones Urine Occult Blood Urine Nitrate Urine Bilirubin Urine Urobilinogen Ur Leukocyte Esterase Urine RBC Urine WBC Ur Squamous Epith Cells Amorphous Sediment Urine Bacteria Urine Mucus Ur Culture Indicated? U Opiates 300ng/mL cut Ur Oxycodone Screen Urine Methadone Screen Ur Barbiturates Screen U Tricyclic Antidepress Ur Phencyclidine Scrn Ur Amphetamines Screen U Methamphetamines Scrn Ur MDMA Scrn (Ecstasy) U Benzodiazepines Scrn Urine Cocaine Screen U Marijuana (THC) Screen SARS-CoV-2 (PCR) Negative 01/20/22 01/20/22 01/20/22 14:34 14:34 16:29 WBC RBC Hgb Hct MCV MCH MCHC RDW Plt Count Neut % (Auto) Lymph % (Auto) [place] % (Auto) Eos % (Auto) Baso % (Auto) Neut # (Auto) Lymph # (Auto) [place] # (Auto) Eos # (Auto) Baso # (Auto) Sodium Potassium Chloride Carbon Dioxide BUN Creatinine Estimated GFR BUN/Creatinine Ratio Glucose Calcium Total Bilirubin AST ALT Alkaline Phosphatase Total Creatine Kinase 91 Troponin I < 0.012 Total Protein Albumin Globulin Albumin/Globulin Ratio Lipase TSH 0.71 Prolactin 4.4 Urine Color Urine Appearance Urine pH Ur Specific [place] Urine Protein Urine Glucose (UA) Urine Ketones Urine Occult Blood Urine Nitrate Urine Bilirubin Urine Urobilinogen Ur Leukocyte Esterase Urine RBC Urine WBC Ur Squamous Epith Cells Amorphous Sediment Urine Bacteria Urine Mucus Ur Culture Indicated? U Opiates 300ng/mL cut Ur Oxycodone Screen Urine Methadone Screen Ur Barbiturates Screen U Tricyclic Antidepress Ur Phencyclidine Scrn Ur Amphetamines Screen U Methamphetamines Scrn Ur MDMA Scrn (Ecstasy) U Benzodiazepines Scrn Urine Cocaine Screen U Marijuana (THC) Screen SARS-CoV-2 (PCR) 01/20/22 01/20/22 18:20 18:20 WBC RBC Hgb Hct MCV MCH MCHC RDW Plt Count Neut % (Auto) Lymph % (Auto) [place] % (Auto) Eos % (Auto) Baso % (Auto) Neut # (Auto) Lymph # (Auto) [place] # (Auto) Eos # (Auto) Baso # (Auto) Sodium Potassium Chloride Carbon Dioxide BUN Creatinine Estimated GFR BUN/Creatinine Ratio Glucose Calcium Total Bilirubin AST ALT Alkaline Phosphatase Total Creatine Kinase Troponin I Total Protein Albumin Globulin Albumin/Globulin Ratio Lipase TSH Prolactin Urine Color Dark yellow Urine Appearance Clear Urine pH 7.0 Ur Specific [place] 1.020 Urine Protein 1+ H Urine Glucose (UA) Negative Urine Ketones Negative Urine Occult Blood Trace-lysed Urine Nitrate Negative Urine Bilirubin Negative Urine Urobilinogen 0.2 Ur Leukocyte Esterase Negative Urine RBC 1-5/hpf Urine WBC 0-1/hpf Ur Squamous Epith Cells 1-5 /hpf Amorphous Sediment 2+ Urine Bacteria None seen Urine Mucus 1+ H Ur Culture Indicated? Cult not indicated U Opiates 300ng/mL cut Positive H Ur Oxycodone Screen Negative Urine Methadone Screen Negative Ur Barbiturates Screen Negative U Tricyclic Antidepress Negative Ur Phencyclidine Scrn Negative Ur Amphetamines Screen Negative U Methamphetamines Scrn Negative Ur MDMA Scrn (Ecstasy) Negative U Benzodiazepines Scrn Negative Urine Cocaine Screen Negative U Marijuana (THC) Screen Negative SARS-CoV-2 (PCR) Assessment & Plan Assessment & Plan narrative: 1. Acute encephalopathy -patient has known dementia, however family states she is not at baseline -etiology not clear -labs notable for WBC of 13, however no fevers, no localizing symptoms -chest xray final read pending, but prelim appears without infection, UA negative -UDS negative aside from positive opiates which is on home meds -TSH normal -CT head with no acute abnormality -MRI head ordered for further evaluation -glucose mildly elevated, but not enough to cause encephalopathy -check b12, patient has this as medication, so may be low -monitor for further infectious symptoms -etiology if all negative may be secondary to concussion 2. Found down -etiology is suspicious for syncope as she has bruising on face, indicates may have suddenly collapsed she may have not protected fall -bradycardia noted, monitoir on tele for arrhythmia, check EKG, appears sinus osmin on tele, but confirm with EKG -harsh murmur on exam, possible that aortic stenosis could be severe enough to cause fall and syncope -check ECHO -check orthostatics -PT/OT 3. Dementia -continue donepezil 4. Type 2 Diabetes -order insulin sliding scale CODE: Full Proxy: Luis Enrique Shaver, spouse I have utilized all available resources to reconcile the patient's home medications Time Spent With Patient Critical Care time: I spent a total of [] minutes of critical care time on this patient's care today; this time is exclusive of procedural time.
[2022-01-20 18:35] LABS: Appearance Urine UA CLEAR; Bilirubin Urine UA NEGATIVE (NEGATIVE); Glucose Urine UA NEGATIVE (Negative); Ketones Urine UA NEGATIVE (NEGATIVE); Leukocyte Esterase Urine UA NEGATIVE (NEGATIVE); Nitrite Urine UA NEGATIVE (Negative); Occult Blood Urine UA TRACE-LYSED (Negative); Protein Urine UA 1+ (Negative); Urobilinogen Urine UA 0.2 E.U./dL (0.2)
[2022-01-20 18:38] LABS: Color Urine UA Dark Yellow
[2022-01-20 18:41] LABS: Amorphous Sediment Urine 2+; Bacteria Urine None Seen; Culture Indicated Urine Cult Not Indicated; Mucus Urine 1+ (Negative); RBC Urine 1-5/HPF (0-5/HPF); Squamous Epithelial Cell Urine 1-5 /HPF (0-5/HPF); WBC Urine 0-1/HPF (0-5/HPF)
[2022-01-20 18:42] LABS: UR Morphine/Opiate cutoff 300 Positive (Negative); Ur Creatinine Normal (Normal); Ur Specific Gravity Normal (Normal); Urine Amphetamines Negative (Negative); Urine Barbiturates Negative (Negative); Urine Benzodiazepines Negative (Negative); Urine Cocaine Negative (Negative); Urine MDMA Negative (Negative); Urine Methadone Negative (Negative); Urine Methamphetamines Negative (Negative); Urine Oxycodone Negative (Negative); Urine Phencyclidine Negative (Negative); Urine Tetrahydrocannabinol Negative (Negative); Urine Tricyclic Antidepressant Negative (Negative); Urine pH Normal (Normal)
[2022-01-20] MEDS: ACETAMINOPHEN 325 MG TABLET 650 MG PO (20:01)
[2022-01-20] MEDS: DONEPEZIL 5 MG TABLET 10 MG PO (20:28)
[2022-01-20 23:06] LABS: Troponin I < 0.012 ng/mL (0.01-0.034)
[2022-01-21] VITALS (9 sets, daily range): BP systolic 117–157; BP diastolic 57–85; PULSE 54–83; RESP 15–18; TEMP 36.4–36.7; O2SAT 87–98
[2022-01-21] MEDS: ACETAMINOPHEN 325 MG TABLET 650 MG PO ×3 (03:07→19:46)
--- NOTE | 2022-01-21 03:36 | PC.NURSE ---
Patient assessed at beginning of shift and was alert and oriented except incorrect on age by 1 year and did not know the day of the week. Speech is delayed and has some word finding difficulties. Breath sounds CTA with RA sat of 94%. HRR w/murmur and telemetry reading of SR w/BBB. BP elevated at 151/56 but at 0200 vitals check was 117/65. Denied nausea. BT present and abdomen is soft. Had voided at end of previous shift but at this time wanting to try getting up to [facility] so assisted with 2 assists using walker. Was very slow with movements and appeared to be a great deal of pain with movement. 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 Is able to flex and extend wrist but complains of pain when doing so. Also complaining of right hip pain and had difficulty sitting down due to the pain. In addition is complaining of pain in lower back. Medicated with tylenol at start of shift and again at this time. Once in standing position was able to take several steps in order to get back into bed. Denies any dysuria with urination. Does have difficulty with repositioning so staff is assisting prn when unable to do it on her own. Fall risk score is high and bed alarm is activated.
[2022-01-21 05:29] LABS: BUN Creatinine Ratio 26.5 (6-22); Blood Urea Nitrogen 13 mg/dL (7-17); Calcium 8.8 mg/dL (8.4-10.2); Carbon Dioxide 29 mmol/L (22-32); Chloride 103 mmol/L (98-107); Estimated Glomerular Filt Rate > 60 mL/min (>60); Glucose 170 mg/dL (80-110); HEMOLYSIS < 15 (0-50); Potassium 3.6 mmol/L (3.4-5.1); Sodium 136 mmol/L (137-145)
[2022-01-21 05:45] LABS: Add Manual Diff / Slide Review NO; Basophils Absolute Auto 0 /uL (0-100); Basophils Percent Auto 0.3 % (0-2); Eosinophils Absolute Auto 100 /uL (0-450); Eosinophils Percent Auto 0.6 % (2-4); Hematocrit 39.3 % (36-46); Hemoglobin 13.3 g/dL (12.0-16.0); Lymphocytes Absolute Auto 1500 /uL (1100-4500); Lymphocytes Percent Auto 16.2 % (25-40); Mean Corpuscular HGB Conc 33.9 % (30-36); Mean Corpuscular Hemoglobin 32.4 PG (26-34); Mean Corpuscular Volume 95.5 fL (80-100); Monocytes Absolute Auto 700 /uL (0-900); Monocytes Percent Auto 7.9 % (3-14); Neutrophils Absolute Auto 6900 /uL (1500-7000); Platelet Count 159 X10^3/uL (150-400); Red Blood Cell Count 4.11 X10^6/uL (4.0-5.2); Red Cell Distribution Width 12.9 % (11.6-14.8); White Blood Cell Count 9.2 X10^3/uL (4.5-11.0)
[2022-01-21 06:18] LABS: Vitamin B12 Reflex MMA if <400 > 1000 pg/mL (239-931)
[2022-01-21] MEDS: INSULIN REGULAR 100 UNIT/ML 3 ML VIAL SUBCUT ×3 (08:30→17:28)
[2022-01-21] MEDS: SODIUM CHLORIDE 0.9% FLUSH 10 ML IV ×2 (08:32→20:50)
[2022-01-21] MEDS: ASPIRIN EC 81 MG TABLET PO (08:32)
[2022-01-21] MEDS: ENOXAPARIN 40 MG/0.4 ML SYRINGE SUBCUT (08:32)
--- NOTE | 2022-01-21 11:15 | OT.IP.EVAL ---
Past Medical History (Last Reviewed 01/20/22 @ 20:17 by Salinas Schroeder MD) Aortic valve stenosis, mild Dementia Diabetes Dyslipidemia Environmental allergies Intractable headache Memory loss Migraines Obstructive sleep apnea Right-sided low back pain with sciatica Spondylarthritis Type 2 diabetes mellitus with hyperglycemia, without long-term current use of insulin Occupational Therapy Inpatient Evaluation/Re-Eval M1 PT/OT-IP Prior Functional Status Start: 01/20/22 16:31 Freq: NEEDED Status: Active Protocol: Document 01/21/22 11:15 [facility] (Rec: 01/21/22 12:53 [facility] [id number]) Medical Review Prior Functional Status Medical History Reviewed Yes Communication able to make needs known Mobility and Gait pt stated that she is independent with all mobilities and ambulation without AD. per spouse: pt had back compression fracture ~ 6 months ago and since then, has been sleeping on a recliner chair. Activities of Daily Living and IADL's Pt has been able to do her ADL 's and assist with IADl needs at home. Pt no longer drives or does her bills or pills at this time. Social History Household Members spouse Living Arrangements Apartment/Condo Number of Floors (Floors) One Floor Number of Stairs To Enter/Railing? pt lives in a basement house/ apartment with one step to enter Home Environment Standard Height Toilet,Walk in Shower Home Equipment Hand Held Shower Additional Social History Comment spouse stated that he cannot assist pt due to his back issues has a rocker recliner chair M2 OT-IP Current Condition Start: 01/21/22 12:29 Freq: Status: Active Protocol: Document 01/21/22 11:15 [facility] (Rec: 01/21/22 12:53 [facility] [id number]) Occupational Therapy Current Condition Current Condition Evaluation Date 01/21/22 Treatment Diagnosis Concussion, acute encephalopathy, s/p fall Diagnosis Onset Date 01/20/22 M3 OT- IP Subjective and Pain Start: 01/21/22 12:29 Freq: Status: Active Protocol: Document 01/21/22 11:15 [facility] (Rec: 01/21/22 12:53 [facility] [id number]) OT- Subjective Occupational Therapy Visit Type Type Initial Evaluation Visit Start Time 11:15 Visit Stop Time 11:56 Total Visit Minutes 41 Occupational Therapy Visit Comments Patient Comments Pt in with PT when OT came to see pt for OT eval. Pt's in the room. Patient/Caregiver Goals To get better. OT Pain Assessment Pain When Pain Assessed At Rest Pain Present Pain Present Pain Reported Location right wrist, hip & lower back Intensity 4 Scale Used Numeric (0 - 10) M4 OT- IP ADL's Start: 01/21/22 12:29 Freq: Status: Active Protocol: Document 01/21/22 11:15 [facility] (Rec: 01/21/22 12:53 [facility] [id number]) OT [id number] Comments OT Self-Feeding Comments Not at meal time. OT ADL-Grooming General Evaluation Grooming Ability Standby Assistance Areas Needing Assistance Retrieving/Set-up of Grooming Items Comments OT Grooming Comments Able to do while standing at the sink and having to use her hand to lean at the sink at times for balance. OT ADL-Oral Care General Eval Oral Care Ability Independent Areas of Assistance Retrieving/Set-Up of Items Comments Oral Care Comments While standing with FWW in front of the sink. OT ADL-Dressing General Eval Lower Body Dressing Ability Standby Assistance Comments OT Dressing Comments Pt able to tanisha/doff her socks while crossing her leg over at this time. OT ADL-Toileting Comments OT Toileting Comments Pt not having to go at this time. OT ADL-Bathing Comments OT Bathing Comments Not performed. M5 OT- IP IADL's Start: 01/21/22 12:29 Freq: Status: Active Protocol: Document 01/21/22 11:15 [facility] (Rec: 01/21/22 12:53 [facility] [id number]) OT-Instrumental Activities of Daily Living Deficits IADL Deficits Identified Deficits Home Safety Awareness Awareness of Need for Assistance at Home Decreased Awareness Ability to Problem Solve Emergency Unable to Problem Solve Situations Home Safety Comments Pt thinking emergency numbers were 311 or 511, pt needing increased time to come up with appropriate answers for home safety. Medication Management Medication Management Caregiver Administers Money Management Money Management Caregiver Provides Assistance Meal Preparation Meal Preparation Caregiver Provides Assist Natural Sciences Department Chair Natural Sciences Department Chair Caregiver Provides Assist Driving Driving Caregiver Provides Assist M6 OT- IP Functional Cognition Start: 01/21/22 12:29 Freq: Status: Active Protocol: Document 01/21/22 11:15 [facility] (Rec: 01/21/22 12:53 [facility] [id number]) Cognitive Factors Limiting Selfcare Function Cognitive Ability Level of Alertness Confusional State Patient Orientation Name,Year Attention Span Ability Capable of Focused Attention, Unable to Sustain Attention Ability to Follow Commands Able to Follow One Step Commands with Increased Time, Able to Follow One Step Commands with Repetition Memory Description Short Term Impaired,Working Impaired Safety Awareness Underestimates Need for Assistance Problem Solving Ability Unable to Identify Errors, Needs Assist to Identify Solutions Cognitive Tests SLUMS Pt scored 7/30 which implies dementia. Pt able to states the year, state, able to states 5 animals and then drawing a blank to be able to come up with any more animals, able to add 20 + 3, and able to place an x on the triangle and identify the square as being the largest shape. Cognitive Comments Cognitive Assessment Comments When asking pt safety questions what to do in case of a fire, pt states make sure to get the kids out. When able to clarify if she has kids at home currently, pt states no and agreed that she was getting confused and thinking in the past. Pt is a bit impulsive and needing reminders to keep the FWW in front of her at all times. Pt not able to accurately figure out what time it was on the clock. OT- Vision and Hearing OT- Hearing Assessment OT- Hearing Assessment WFL OT- Vision Assessment Visual Acuity Glasses All The Time Visual Attentiveness WFL Occular Pursuits WFL M7 OT- IP Mobility and Balance Start: 01/21/22 12:29 Freq: Status: Active Protocol: Document 01/21/22 11:15 [facility] (Rec: 01/21/22 12:53 [facility] [id number]) OT-Transfer Assessment Transfers Transfer Ability Minimal Assistance,Moderate Assistance Technique Transfer Destination Bed,Chair Devices Transfer Assistive Devices Gait Belt,Front Wheeled Walker Comments Mobility Comments MIN/MODA to stand to FWW and assist to guide the FWW, vc for safety of FWW use and for her balance. OT- Balance Assessment Sitting Balance and Reactions Static Sitting Balance Ability Good Dynamic Sitting Balance Ability Good Standing Balance and Reactions Static Standing Balance Ability Fair Dynamic Standing Balance Ability Poor M8 OT- IP Objective Assessments Start: 01/21/22 12:29 Freq: Status: Active Protocol: Document 01/21/22 11:15 [facility] (Rec: 01/21/22 12:53 [facility] [id number]) OT Gross Range of Motion Upper Extremity Range of Motion Assessment Within Functional Limits OT Strength Comments Strength Comments BUE 4/5 throughout OT- Coordination Assessment Upper Extremity Finger to Nose Test Within Functional Limits Finger Tapping Test Within Functional Limits Comments Coordination Comments Pt able to do finger to nose but having difficulty to recall the directions. OT-Muscle Tone Assessment Muscle Tone WNL Yes OT Sensation Assessment Comments Summary Comments intact for light touch M9 OT- IP Assessment and Plan Start: 01/21/22 12:29 Freq: Status: Active Protocol: Document 01/21/22 11:15 [facility] (Rec: 01/21/22 12:53 [facility] [id number]) OT Summary Assessment and Plan Potential Rehabilitation Potential Good Analytic Complexity at Evaluation Moderate Summary OT Impairments Pain,Balance,Functional Cognition,Functional Mobility, Grooming,Dressing,Toileting, Bathing,Toilet Transfers, Shower Transfers,Activity Tolerance Progress Towards Goals Slow Progress due to Medical Issues,Slow Progress due to Cognition Assessment Summary Pt MOD complexity and main barriers are decreased short term and working memory, and per is much worse than before. Pt just scoring 7/30 on the SLUMS. Pt also has dark urine and low sodium reading which may also be affecting her thinking at this time. At this time pt needing MIN/MODA for mobility needs and to great for her to assist as he has his own back issues at this time. Pt would benefit from skilled rehab to work on her functional cognition for ADL and mobility needs and hopefully get back to her prior level of independence without a device. Goals Grooming Goal Independent Dressing Goal Standby Assistance Toileting Goal Standby Assistance Bathing Goal Standby Assistance Toilet Transfer Goal Standby Assistance Shower Transfer Goal Standby Assistance Days to Meet Goals 15 Frequency of Treatment Frequency Of Treatment Once a Day Treatment Plan OT Treatment Plan ADL Training,Functional Cognition Training,Functional Mobility,Patient/Family Education,Discharge Planning Other Treatment Recommendations and Next shower Treatment Focus Discharge Recommendations OT Discharge Recommendations SNF Rehab Transportation Needs at Discharge Wheelchair/Cabulance
--- NOTE | 2022-01-21 11:32 | PT.IPTN ---
Physical Therapy Treatment Note M2 PT-IP Current Condition Start: 01/20/22 16:31 Freq: NEEDED Status: Active Protocol: Document 01/20/22 15:55 AB (Rec: 01/20/22 16:47 AB [id number]) Physical Therapy Current Condition Current Condition Evaluation Date 01/20/22 Treatment Diagnosis s/p fall; concussion; difficulty in walking Onset Date 01/20/22 M3 PT-IP Subjective Start: 01/20/22 16:31 Freq: NEEDED Status: Active Protocol: Document 01/21/22 11:32 AW (Rec: 01/21/22 12:11 AW [id number]) Subjective Physical Therapy Visit Type Type Treatment Note Visit Start Time 11:04 Visit Stop Time 11:32 Total Visit Minutes 28 Notes Orthostatic VS taken during this session are negative. Documented separately. Pt's spouse was present for part of tx . OT co-treated partially. Number of [employer] Visits 0 Physical Therapy Visit Comments Patient Comments Pt is willing to participate with PT Therapy Pain Assessment Pain When Pain Assessed During Mobility Pain Present Pain Present Pain Reported Location right wrist, hip & lower back Intensity 6 Scale Used Numeric (0 - 10) Pain Management Techniques Distraction,Modification of Treatment M4 PT-IP Mobility and Gait Start: 01/20/22 16:31 Freq: NEEDED Status: Active Protocol: Document 01/21/22 11:32 AW (Rec: 01/21/22 12:11 AW [id number]) PT-Bed Mobility Assessment Supine to Sit Supine to Sit Contact Guard Assistance, Minimal Assistance Scooting Scooting to Edge of Bed Contact Guard Assistance PT-Transfer Assessment Sit to and From Stand Sit to and from Stand Minimal Assistance,Moderate Assistance,1 Person Assistance ,Use of Upper Extremities Equipment Transfer Assistive Device Gait Belt,Front Wheeled Walker Transfers Transfer Destination Chair Transfer Technique ambulated with FWW Transfer Ability Level of Assist Minimal Assistance,Moderate Assistance,1 Person Assistance ,Use of Upper Extremities Comments Mobility Comments Pt was lying in the bed as PT arrived. She was confused and vaguely disoriented. She spoke of a previous admission for the same thing although her only interaction with in the last 5 years was an ED visit for back pain earlier this year. Supine BP 140/61 HR 54. She agreed to sit up EOB , needing CGA/min A and cues for log roll. She sat with and without UE support with her feet on the floor. Sitting BP 145/65 HR 54. She needed min/ mod A including assist to guide hands to walker handles to stand using FWW. Standing BP was 127/62 HR 62. Pt denied lightheadedness. She walked to the sink with FWW min A. She needed cues to square the walker up with the sink for best support. CGA for balance provided as pt completed oral hygiene at the sink. When directed to walk to the chair, pt awkwardly turned toward the chair without using the walker and needed assist to place hands on walker handles before proceeding to the chair . Min/mod A required for safe transfer to the chair. BP was 125/58 HR 64 after activity. Pt was left with OT for further assessment. Gait Assessment Gait Gait Assistance Required: Minimum Assistance,Moderate Assistance,1 Person Assist Distance (Feet) 8 Assistive Devices Assistive Device Gait Belt,Front Wheeled Walker Gait Deviations General Gait Pattern Antalgic,Decreased Stride Length,Decreased Feet Clearance,Flexed Trunk Factors Limiting Gait Function Factors Limiting Gait Function Decreased Activity Tolerance, Decreased Strength,Pain,Poor Balance,Poor Safety Awareness Comments Gait Comments See mobility comments for details. PT-Balance Assessment Sitting Balance and Reactions Static Sitting Balance Ability Fair Dynamic Sitting Balance Ability Fair Standing Balance and Reactions Static Standing Balance Ability Fair Dynamic Standing Balance Ability Poor Device Used FWW M5 PT-IP Objective Assessments Start: 01/20/22 16:31 Freq: NEEDED Status: Active Protocol: Document 01/20/22 15:55 AB (Rec: 01/20/22 16:47 AB [id number]) Orientation Orientation/Cognition Level of Alertness Confusional State Orientation Name Language Function Ability Hard of Hearing Safety Awareness Decreased Safety Awareness Memory Description Short Term Impaired,Custodial Impaired Gross Range of Motion Lower Extremity ROM Assessment Bilaterally Impaired Impairments pain limiting movement Strength Lower Extremity Strength Hip 3+/5 Knee 3+/5 Sensation Assessment Sensation Gross Sensation Right UE Impaired,Left UE Impaired Sensation Description Numbness Muscle Tone Muscle Tone WNL Yes M6 PT-IP Treatment Start: 01/20/22 16:31 Freq: NEEDED Status: Active Protocol: Document 01/21/22 11:32 AW (Rec: 01/21/22 12:11 AW [id number]) Physical Therapy Treatment Education Education Provided Precautions,Safety M7 PT-IP Assessment and Plan Start: 01/20/22 16:31 Freq: NEEDED Status: Active Protocol: Document 01/21/22 11:32 AW (Rec: 01/21/22 12:11 AW [id number]) PT Summary Assessment and Plan Summary Progress Towards Goals Progressing Toward Goals,Slow Progress - Other Assessment Summary Pt was able to progress her mobility today, needing only min A with bed mobility and min/mod A for transfers and short distance gait with FWW. Orthostatic VS were negative. She is most affected by confusion secondary to likely concussion and needing a lot of cues for sequencing and safe use of assistive device. Mobility is likely to wax and wane in this recovery period. As her spouse is unable to provide consistent support due to his own back issues, pt would benefit from SNF rehab to improve her strength and mobility independence. Will continue to assess progress and refine discharge recommendation. Goals Bed Mobility Goal Minimal Assistance Transfer Goal Minimal Assistance,Front Wheeled Walker Gait Goal Minimal Assistance,Front Wheel Walker Gait Distance 30 Other Goals improve bed mobility, transfers and ambulation using FWW/least restrictive AD/ without AD 100 ft SBA up/down 1 steps using AD SBA Days to Meet Goals 10 Frequency of Treatment Frequency Of Treatment Once a Day Treatment Plan Physical Therapy Treatment Plan Bed Mobility Training,Transfer Training,Gait Training, Therapeutic Exercise,Balance Retraining,Discharge Planning, Hot or Cold Pack,Neuromuscular Re-ed,Coordination Retraining ,Manual Therapy Precautions Lumbar Precautions Log Roll,No Twisting,Limit Bending,Lifting Restriction of 10 lbs,Gait Belt above Incisional Area Other Precautions falls Recommendations To Nursing Amount of Assist Needed 2 Person Assist Discharge Recommendations PT Discharge Recommendations Home with 24/ Assist Available,Home Health,SNF Rehab,Home vs SNF Equipment Needed for Home Before FWW if pt goes home Discharge Transportation Needs at Discharge Private Vehicle,Wheelchair/ Cabulance
--- NOTE | 2022-01-21 12:01 | CM.DANOTE ---
Addendum entered by Isabel Alarcon R.N. 01/21/22 14:11: DCP received a phone call from Luis Enrique this afternoon and he voices to DCP that pt has improved today and he feels that he would be able to take care of the patient at home. DCP verbalized that home health could also be set up for pt. Pt agrees. Luis Enrique feels that SNF is a second option at this time and the pt has voiced that she would like to go home. [facility] referral initiated. DCP to continue to follow ADJ Addendum entered by Isabel Alarcon R.N. 01/21/22 13:45: [facility] has declined patient. ADJ Original Note: DCP Assessment: Payor confirmed: Rocío PCP confirmed: MD Adrián Pt is a 66 y.o. F who presented to the ER following a fall at home. Pt was found on the floor by her spouse. Pt admitted to the floor for further management and evaluation of her symptoms. DCP met with pt and pt spouse this morning to discuss needs. Pt is confused and DCP main source of information was from her spouse, Luis Enrique. Luis Enrique states that they live in a basement apartment in [place]. He has brothers who are local who could help care for pt. DCP spoke with Luis Enrique regarding recommendations from PT/OT. DCP explained that there are a few facilities who take pt insurance. [facility] provided Luis Enrique with those facilities so he could look up. Luis Enrique wants to stay in [facility] if possible. DCP explained that due to the circumstances of bed availability and covid outbreaks, it would be where we could find a bed. Luis Enrique verbalized understanding. White board updated and Luis Enrique given DCP contact info. Luis Enrique requesting advance directive paperwork. [facility] provided that to him. Luis Enrique thankful for discussion. [facility] sent referrals to [facility], [facility], [facility], and [facility]. [facility] does not have any bed availability and cannot accept pt at this time. DCP to follow up with other facilities. P: Anticipate discharge to SNF once medically stable. Isabel Alarcon RN/AURELIO Discharge Planning/Care Management Advanced directive, confirm from FAMILY Start: 01/20/22 18:07 Freq: Q24H Status: Active Protocol: Document 01/20/22 18:15 [facility] (Rec: 01/20/22 18:16 [facility] [id number]) Advance Directive, confirm on record Time 18:15 Person contacted No advance directive per spouse. Nothing to obtain. D/c intervention Copy received No CM Discharge Assessment Start: 01/21/22 10:22 Freq: Status: Active Protocol: Document 01/21/22 12:00 [facility] (Rec: 01/21/22 12:01 [facility] [id number]) Discharge Planning Assessment Assigned Seat Cover Installer Isabel Alarcon RN/AURELIO Advance Directives? No Advance Directives on File No History Provided By Family Member,Medical Record Prior Living Arrangements Apartment/Condo Household Members spouse Type of transporation used prior to Relies on Others admit Independent with ADL's Yes: normally Is patient alert and oriented? No: Pt confused Patient/Family Preference [facility] Facility Discharge Plan [facility] Facility Transportation Arrangement Facility transport Referrals Initiated [facility] Whiteboard Updated in Patient Room with Yes name and ext. # of Seat Cover Installer Comment Instructed to call Review Status In Process Please Provide Date Initial DC 01/21/22 Assessment Was Performed Next Review Type Continued Stay Review
--- NOTE | 2022-01-21 15:09 | P.PN_ITS ---
Subjective Subjective Date Patient Seen: 01/21/22 Interval history: Patient feels much improved today, denies headaches, weakness, numbness, tingling. MRI negative for CVA. Per family at bedside she appears to be improving today. Exam Vital Signs (past 8 hours): - 01/21/22 10:00 01/21/22 11:07 01/21/22 14:00 Temperature 97.8 F 98.0 F 98.1 F Pulse Rate 55 L 54 L 83 Respiratory Rate 17 15 17 Blood Pressure 127/63 140/61 126/61 Pulse Oximetry 96 98 87 L Oxygen Flow Rate 0 0 0 Oxygen Delivery Method Room Air Oxygen Flow Rate 0 Narrative Exam Narrative: GEN: WDWN no acute distress. HEENT: moist mucous membranes, PERRL NECK: trachea midline, no JVD PULM: clear bilaterally, no wheezes, rhonchi rales CV: regular rate and rhythm, harsh systolic murmurs ABD: soft, nontender, nondistended, no organomegaly EXT: warm and well perfused with no edema NEURO: alert and oriented, no focal deficits noted, normal upper and lower extremity strength, sensation intact Objective Labs Result Diagrams: 01/21/22 05:06 01/21/22 05:06 Labs: Laboratory Results - last 24 hr 01/20/22 01/20/22 01/20/22 14:34 14:34 16:29 WBC RBC Hgb Hct MCV MCH MCHC RDW Plt Count Neut % (Auto) Lymph % (Auto) [place] % (Auto) Eos % (Auto) Baso % (Auto) Neut # (Auto) Lymph # (Auto) [place] # (Auto) Eos # (Auto) Baso # (Auto) Sodium Potassium Chloride Carbon Dioxide BUN Creatinine Estimated GFR BUN/Creatinine Ratio Glucose Calcium Total Creatine Kinase 91 Troponin I < 0.012 Vitamin B12 TSH 0.71 Prolactin 4.4 Urine Color Urine Appearance Urine pH Ur Specific [place] Urine Protein Urine Glucose (UA) Urine Ketones Urine Occult Blood Urine Nitrate Urine Bilirubin Urine Urobilinogen Ur Leukocyte Esterase Urine RBC Urine WBC Ur Squamous Epith Cells Amorphous Sediment Urine Bacteria Urine Mucus Ur Culture Indicated? U Opiates 300ng/mL cut Ur Oxycodone Screen Urine Methadone Screen Ur Barbiturates Screen U Tricyclic Antidepress Ur Phencyclidine Scrn Ur Amphetamines Screen U Methamphetamines Scrn Ur MDMA Scrn (Ecstasy) U Benzodiazepines Scrn Urine Cocaine Screen U Marijuana (THC) Screen 01/20/22 01/20/22 01/20/22 18:20 18:20 22:16 WBC RBC Hgb Hct MCV MCH MCHC RDW Plt Count Neut % (Auto) Lymph % (Auto) [place] % (Auto) Eos % (Auto) Baso % (Auto) Neut # (Auto) Lymph # (Auto) [place] # (Auto) Eos # (Auto) Baso # (Auto) Sodium Potassium Chloride Carbon Dioxide BUN Creatinine Estimated GFR BUN/Creatinine Ratio Glucose Calcium Total Creatine Kinase Troponin I < 0.012 Vitamin B12 TSH Prolactin Urine Color Dark yellow Urine Appearance Clear Urine pH 7.0 Ur Specific [place] 1.020 Urine Protein 1+ H Urine Glucose (UA) Negative Urine Ketones Negative Urine Occult Blood Trace-lysed Urine Nitrate Negative Urine Bilirubin Negative Urine Urobilinogen 0.2 Ur Leukocyte Esterase Negative Urine RBC 1-5/hpf Urine WBC 0-1/hpf Ur Squamous Epith Cells 1-5 /hpf Amorphous Sediment 2+ Urine Bacteria None seen Urine Mucus 1+ H Ur Culture Indicated? Cult not indicated U Opiates 300ng/mL cut Positive H Ur Oxycodone Screen Negative Urine Methadone Screen Negative Ur Barbiturates Screen Negative U Tricyclic Antidepress Negative Ur Phencyclidine Scrn Negative Ur Amphetamines Screen Negative U Methamphetamines Scrn Negative Ur MDMA Scrn (Ecstasy) Negative U Benzodiazepines Scrn Negative Urine Cocaine Screen Negative U Marijuana (THC) Screen Negative 01/21/22 01/21/22 01/21/22 05:06 05:06 05:06 WBC 9.2 RBC 4.11 Hgb 13.3 Hct 39.3 MCV 95.5 MCH 32.4 MCHC 33.9 RDW 12.9 Plt Count 159 Neut % (Auto) 75.0 Lymph % (Auto) 16.2 L [place] % (Auto) 7.9 Eos % (Auto) 0.6 L Baso % (Auto) 0.3 Neut # (Auto) 6900 Lymph # (Auto) 1500 [place] # (Auto) 700 Eos # (Auto) 100 Baso # (Auto) 0 Sodium 136 L Potassium 3.6 Chloride 103 Carbon Dioxide 29 BUN 13 Creatinine 0.49 L Estimated GFR > 60 BUN/Creatinine Ratio 26.5 H Glucose 170 H Calcium 8.8 Total Creatine Kinase Troponin I Vitamin B12 > 1000 H TSH Prolactin Urine Color Urine Appearance Urine pH Ur Specific [place] Urine Protein Urine Glucose (UA) Urine Ketones Urine Occult Blood Urine Nitrate Urine Bilirubin Urine Urobilinogen Ur Leukocyte Esterase Urine RBC Urine WBC Ur Squamous Epith Cells Amorphous Sediment Urine Bacteria Urine Mucus Ur Culture Indicated? U Opiates 300ng/mL cut Ur Oxycodone Screen Urine Methadone Screen Ur Barbiturates Screen U Tricyclic Antidepress Ur Phencyclidine Scrn Ur Amphetamines Screen U Methamphetamines Scrn Ur MDMA Scrn (Ecstasy) U Benzodiazepines Scrn Urine Cocaine Screen U Marijuana (THC) Screen PFSH Medical History Aortic valve stenosis, mild Dementia Diabetes Dyslipidemia Environmental allergies Intractable headache Memory loss Migraines Obstructive sleep apnea Right-sided low back pain with sciatica Spondylarthritis Type 2 diabetes mellitus with hyperglycemia, without long-term current use of insulin Social History household members: spouse Smoking Status: Never smoker Assessment & Plan Assessment & Plan narrative: 1. Acute encephalopathy -patient has known dementia, however family states she was not at baseline but is improving today. -etiology not clear -labs notable for WBC of 13, however no fevers, no localizing symptoms -chest xray without infection, UA negative -UDS negative aside from positive opiates which is on home meds -TSH normal -CT head with no acute abnormality -MRI without any acute infarct. -glucose mildly elevated, but not enough to cause encephalopathy -b12 level is normal -monitor for further infectious symptoms again overnight -etiology if all negative may be secondary to concussion 2. Found down -etiology is suspicious for syncope as she has bruising on face, indicates may have suddenly collapsed she may have not protected fall -bradycardia noted, monitoir on tele for arrhythmia, EKG with sinus bradycardia. -harsh murmur on exam, possible that aortic stenosis could be severe enough to cause fall and syncope -TTE read pending. -PT/OT 3. Dementia -continue donepezil 4. Type 2 Diabetes -order insulin sliding scale CODE: Full Proxy: Luis Enrique GarciaSheffield, spouse Time Spent With Patient Critical Care time: I spent a total of [] minutes of critical care time on this patient's care tod ay; this time is exclusive of procedural time.
[2022-01-21] MEDS: DONEPEZIL 5 MG TABLET 10 MG PO (20:50)
[2022-01-21] MEDS: HYDROCODONE/ACET 5/325 TABLET 1 TAB PO (20:50)
[2022-01-22 01:40] VITALS: BP 111/59; PULSE 59; RESP 18; TEMP 36.1; O2SAT 94
[2022-01-22] MEDS: HYDROCODONE/ACET 5/325 TABLET 1 TAB PO ×2 (01:46→06:29)
[2022-01-22 06:05] VITALS: BP 109/63; BP 121/60; BP 126/65; PULSE 55; PULSE 64; PULSE 75; RESP 18; TEMP 36.3; O2SAT 93
[2022-01-22 07:00] VITALS: O2SAT 95
[2022-01-22] MEDS: INSULIN REGULAR 100 UNIT/ML 3 ML VIAL SUBCUT (08:24)
[2022-01-22 08:35] VITALS: BP 116/61; PULSE 61; RESP 16; TEMP 36.5; O2SAT 95
--- NOTE | 2022-01-22 08:56 | P.DS_ITS ---
History of Present Illness History of Present Illness Date Patient Seen: 01/22/22 Time Patient Seen: 08:56 Chief complaint: GLF Narrative: Per Admitting Provider, Ms. Shaver is a 66W with PMH documented in chart of dementia, diabetes, and mild aortic valve stenosis who presents to the hospital after being found on the ground. Patient is not able to tell me any history of how or when she fell. Per report from family and the ED she and her sleep in separate rooms. When he checked on her today she was on the floor. She has a contusion to her head. She was otherwise denying any significant symptoms with no chest pain, shortness of breath, fevers, chills. She is unable to tell me her medical history when asked In the ED, workup was done vitals notable for afebrile, bradycardic in the 50s. EKG not done. Labs notable for WBC of 13, creatinine 0.57. Glucose 176. Trop negative. CK 91. TSH 0.71, prolactin 4.4. UA negative. Chest xray ordered and pending final read. CT head with no acute process. Hip, wrist, and thoracic spine xray with no acute process. She was admitted for further workup. Family history: patient acutely encephalopathic and unable to provide Social history: denies smoking, drinking, other substance use Discharge Providers Provider Date of admission: 01/20/22 14:06 Discharge Date: 01/22/22 Primary care physician: Birgit Sampson MD Consults: 01/20/22 15:28 Consult to Occupational Therapy Evaluate & Treat Comment: Physician Instructions: Evaluate and treat Consult to Physical Therapy Evaluate & Treat Comment: Physician Instructions: Evaluate and Treat 01/20/22 18:07 Consult to Dietitian, Adult Routine Comment: Reason For Exam: Assessed as high risk 01/21/22 14:19 Consult to Home Health Routine Comment: Reason For Exam: Evaluate and Treat, RN, PT, OT, Aide Discharge provider: Leonel Khan DO Summary Hospital Course Discharge Diagnosis: 1. Acute encephalopathy, probable concussion 2. Found down 3. Dementia 4. Type 2 Diabetes Hospital Course: This is a 66-year-old female with a known history of dementia who was found down at home and found to be markedly confused. She would a mild leukocytosis but no other signs or symptoms of infection and infectious workup was largely unremarkable. Her B12 level was also unremarkable. She was noted to have moderate aortic stenosis on echocardiogram but a normal ejection fraction, and with unremarkable telemetry syncope is felt to be less likely of an etiology at this time. MRI did not show evidence of an acute infarct, and given negative if symptoms are most likely a result of a concussion. Her encephalopathy improved and she returned to nearly her normal baseline. No medication changes are the time of discharge. Record her primary care provider, if there is overt concern for possible arrhythmia a Holter monitor may be a reasonable next step. Though no notable events were noted on telemetry while in the hospital. Exam Vital Signs (past 8 hours): - 01/22/22 01:40 01/22/22 06:05 01/22/22 06:05 Temperature 96.9 F L 97.3 F L Pulse Rate 59 L 55 L Pulse Rate [Orthostatic Lying] 55 L Pulse Rate [Orthostatic Sitting] 64 Pulse Rate [Orthostatic Standing] 75 Respiratory Rate 18 18 Blood Pressure 111/59 L 121/60 Blood Pressure [Orthostatic Lying] 121/60 Blood Pressure [Orthostatic Sitting] 126/65 Blood Pressure [Orthostatic Standing] 109/63 Pulse Oximetry 94 93 Oxygen Flow Rate 0 0 01/22/22 08:35 Temperature 97.7 F Pulse Rate 61 Pulse Rate [Orthostatic Lying] Pulse Rate [Orthostatic Sitting] Pulse Rate [Orthostatic Standing] Respiratory Rate 16 Blood Pressure 116/61 Blood Pressure [Orthostatic Lying] Blood Pressure [Orthostatic Sitting] Blood Pressure [Orthostatic Standing] Pulse Oximetry 95 Oxygen Flow Rate 0 Oxygen Delivery Method Room Air Oxygen Flow Rate 0 Narrative Exam Narrative: GEN: WDWN no acute distress. HEENT: moist mucous membranes, PERRL NECK: trachea midline, no JVD PULM: clear bilaterally, no wheezes, rhonchi rales CV: regular rate and rhythm, harsh systolic murmurs ABD: soft, nontender, nondistended, no organomegaly EXT: warm and well perfused with no edema NEURO: alert and oriented, no focal deficits noted, normal upper and lower extremity strength, sensation intact Objective Labs Result Diagrams: 01/21/22 05:06 01/21/22 05:06 [facility] Medical History Aortic valve stenosis, mild Dementia Diabetes Dyslipidemia Environmental allergies Intractable headache Memory loss Migraines Obstructive sleep apnea Right-sided low back pain with sciatica Spondylarthritis Type 2 diabetes mellitus with hyperglycemia, without long-term current use of insulin Social History household members: spouse Smoking Status: Never smoker Discharge Plan Discharge Plan Patient Disposition: Home Provider Discharge Comment: You were admitted to the hospital with confusion, no life threatening causes were found and no evidence of infection was found after extensive observation. Most likely you have a concussion. Please follow up with your primary care provider in a couple of weeks. Discharge orders & Medications Prescriptions: Continued aspirin 81 mg Tablet,Delayed Release (Dr/Ec) 81 mg PO DAILY cyanocobalamin (vitamin B-12) 1,000 mcg Tablet 1,000 mcg PO DAILY chromium 100 mcg Tablet 100 mcg PO DAILY methocarbamol 500 mg Tablet 1,000 mg PO TID PRN (Reason: Muscle Spasm) donepezil 10 mg Tablet 10 mg PO BEDTIME flaxseed oil 1,000 mg Capsule 1,000 mg PO DAILY Rx Instructions: administer with a meal hydrocodone-acetaminophen 7.5-325 mg Tablet 1 tab PO Q8H PRN (Reason: Pain (Scale Score 1-3)) metformin 500 mg Tablet Extended Release 24 Hr 500 mg PO QPM Rx Instructions: With dinner multivitamin with iron-mineral Tablet 1 tab PO DAILY diclofenac sodium 1 % Gel 4 g TOPICAL QID PRN (Reason: Pain (Scale Score 1-3)) Rx Instructions: apply to single knee, ankle, foot; for foot includes sole/toes/top of foot omega-3 fatty acids-fish oil 684-1,200 mg Capsule,Delayed Release(Dr/Ec) 1 cap PO DAILY melatonin 5 mg Tablet 5 mg PO BEDTIME PRN (Reason: Sleep) sumatriptan succinate [Imitrex] 100 mg Tablet 100 mg PO Q2-4H MDD 200 PRN (Reason: Migraine Headache) Rx Instructions: do not exceed 2 doses per 24 hrs propranolol 20 mg Tablet 20 mg PO BID Follow up/Referrals: Birgit Sampson MD [Primary Care Provider] - (*Appt on at 3:00pm with check-in at 2:45pm. [phone].) Diet/Activity/Treatments Diet: Diet as Tolerated Activity: As tolerated Visit Report/Discharge Packet Instructions: How to Prevent Falls Discharge Data Primary Care Provider: Birgit Sampson Attending Provider: Salinas Schroeder
--- NOTE | 2022-01-22 09:12 | CM.DPC ---
Addendum entered by Isabel Alarcon R.N. 01/22/22 10:41: [facility] called and states they do not accept [employer] insurance. [facility] contacted and they do not accept either. [facility] is the only facility who will accept this insurance. referral initiated. DCP contacted pt spouse to update him on situation. Spouse agreeable to plan. ADJ Original Note: DCP Cont: Per MD, pt is medically stable for discharge today. [facility] contacted and they have received referral and will be contacting the pt to set up times for assessment. [facility] contact information given to pt spouse to contact in case they do not hear from [facility]. Spouse to transport pt home. All required documentation to be faxed to [facility] today. Isabel Alarcon RN/AURELIO
--- NOTE | 2022-01-22 11:53 | PC.NURSE ---
Pt discharged home by private vehicle at 1030. Escorted off floor in wheelchair, accompanied by spouse and hospital staff. Iv removed, tele d'c'd, discharge teaching completed including follow up appointment and prevention of future falls. Pt left floor with all belongings.
== END 2022-01-22 11:56 | disposition home or self-care (01) ==
LOC: ED 14:07 → AC 14:07
PROVIDERS: Admitting Provider Internal Medicine; Emergency Provider Emergency Medicine; PCP Family Medicine; Referring Provider Emergency Medicine; Visit Provider Internal Medicine
DX: S69.91XA Unspecified injury of right wrist, hand and finger(s), initial encounter (principal); W19.XXXA Unspecified fall, initial encounter; Y92.009 Unspecified place in unspecified non-institutional (private) residence as the place of occurrence of the external cause; S00.83XA Contusion of other part of head, initial encounter; G93.40 Encephalopathy, unspecified; F03.90 Unspecified dementia, unspecified severity, without behavioral disturbance, psychotic disturbance, mood disturbance, and anxiety; I35.0 Nonrheumatic aortic (valve) stenosis; Z20.822 Contact with and (suspected) exposure to COVID-19
CPT/HCPCS: 36415; 70450; 70551; 71045; 72072; 73110; 73502; 80048; 80053; 80305; 81001; 82550; 82607; 82962; 83690; 84146; 84443; 84484; 85025; 87635; 93005; 93306; 96372; 97162; 97166; 97530; 99282; 99284; C9803; G0378; J1650

== ENCOUNTER 2024-02-21 06:36 | Emergency (ER) | payer OTHER, SELFPAY ==
[2022-01-20 17:00] VITALS: BMI 24.2
[2024-02-21] VITALS (15 sets, daily range): BP systolic 122–168; BP diastolic 63–72; PULSE 48–62; RESP 12–28; TEMP 36.6; O2SAT 91–99; BMI 23.6
--- NOTE | 2024-02-21 07:37 | DI.CT.S_ITS ---
PROCEDURE: CT THORACIC SPINE WO CON INDICATIONS: fall pain TECHNIQUE: Noncontrast 3 mm thick sections acquired through the region of interest in the thoracic spine. Sagittal and coronal reformats were then constructed. For radiation dose reduction, the following was used: automated exposure control. COMPARISON: [facility], CR, XR THORACIC SPINE 3V, 01/20/2022, 12:24. FINDINGS: Image quality: Excellent. Bones: There is [id number] kyphosis centered at T10 level. Age indeterminate anterior wedge compression deformity involving superior endplate of T11, T12 and L1 is seen with up to 40% loss of T11 and T12 vertebral body heights and up to 30% loss of L1 vertebral body height anteriorly. The T12 vertebral body compression fracture was noted on previous study in 2021 and is grossly unchanged. There is interval further loss of T11 vertebral body height. No suspicious sclerotic or lytic bony lesions. There is loss of disc height, vacuum disc phenomenon and degenerative endplate changes throughout thoracic spine. Slight retropulsion of teeth 11, T12 and L1 posterior lau are seen with very mild central canal stenosis at these levels. Soft tissues: No paravertebral masses or hematomas. Visualized posteromedial lungs appear clear. Postsurgical changes are noted in gallbladder fossa. IMPRESSION: 1. Chronic and stable appearing anterior wedge compression deformity involving superior endplate of T12 vertebral body unchanged from 2021 study. 2. Interval further loss of T11 vertebral body height. Interval development of superior endplate compression deformity at L1 level as above. 3. 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 No significant central canal stenosis or neural foraminal narrowing. Dictated by: Raúl Hayes M.D. on 02/21/2024 at 8:12 Approved by: Raúl Hayes M.D. on 02/21/2024 at 8:19
--- NOTE | 2024-02-21 07:37 | DI.CT.S_ITS ---
PROCEDURE: CT LUMBAR SPINE WO CON INDICATIONS: fall pain TECHNIQUE: Noncontrast 3 mm thick sections acquired from the T12 level to the sacrum. Sagittal and coronal reformats were constructed. For radiation dose reduction, the following was used: automated exposure control. COMPARISON: [facility], CR, XR THORACIC SPINE 3V, 01/20/2022, 12:24. FINDINGS: Image quality: Excellent. Bones: There is normal bony alignment. Age indeterminate superior endplate compression deformity at L1, L3 and L5 levels are seen with up to 30% loss of L1 vertebral body height, up to 20% loss of L3 vertebral body height, and up to 25% loss of L5 vertebral body height. Slight retropulsion of posterior wall at L1 L3 and L5 levels causing mild central canal stenosis at these levels. No suspicious lytic or blastic bony lesions. No pars defects. T12-L1: No significant disc bulge, canal stenosis or neural foraminal narrowing. L1-L2: No significant disc bulge, canal stenosis or neural foraminal narrowing. L2-L3: Mild diffuse disc bulge and bilateral facet arthrosis with mild central canal stenosis and left-sided neural foraminal narrowing. L3-L4: Broad-based disc bulge and bilateral facet arthrosis with mild central canal stenosis and right worse than left bilateral neural foraminal narrowing. L4-L5: Broad-based disc bulge and bilateral facet arthrosis causing moderate central canal stenosis and moderate to severe right-sided neural foraminal narrowing. Moderate left-sided neural foraminal narrowing is also seen. L5-S1: Diffuse disc bulge and bilateral facet arthrosis with mild central canal stenosis and moderate right worse than left bilateral neural foraminal narrowing. Soft tissues: No retroperitoneal masses or hematomas. Visualized aorta is normal in caliber. IMPRESSION: 1. Age indeterminate superior endplate compression deformity at L1, L3 and L5 levels as described above. The compression deformity at L1 level was not seen on previous thoracic spine radiograph in 2021. Very slight retropulsion involving upper posterior wall of above-mentioned vertebral bodies causing very mild central canal stenosis at these levels. 2. [id number]-rh-[id number] degenerative disc disease throughout lumbar spine causing various degrees of central canal stenosis and bilateral neural foraminal narrowing as described above. 3. No gross paraspinous soft tissue abnormalities. Dictated by: Raúl Hayes M.D. on 02/21/2024 at 8:19 Approved by: Raúl Hayes M.D. on 02/21/2024 at 8:23
--- NOTE | 2024-02-21 07:39 | ED.FALL ---
HPI - Fall General Chief Complaint: Fall Stated Complaint: back pain Time Seen by Provider: 02/21/24 06:59 Source: EMS Mode of arrival: EMS History of Present Illness HPI Narrative: Patient is 69-year-old female history of chronic back pain mild dementia presenting today with fall and worsening back pain. Has been reports that he heard her fall around 5:00 a.m. unclear if she hit her head or lost consciousness but not having any sort of head injury. Unable to walk she is pretty severe pain. She does take oxycodone 10 mg twice a day. No numbness or tingling in her legs no hip pain no neck pain. Related Data Home Medications Medication Instructions Recorded Confirmed aspirin 81 mg tablet,delayed 81 mg PO DAILY 01/20/22 09/11/23 release cyanocobalamin (vitamin B-12) 1,000 mcg PO DAILY 01/20/22 09/11/23 1,000 mcg tablet donepezil 10 mg tablet 10 mg PO BEDTIME 01/20/22 09/11/23 metformin 500 mg tablet,extended 500 mg PO QPM 01/20/22 09/11/23 release 24 hr methocarbamol 500 mg tablet 1,000 mg PO TID PRN Muscle Spasm 01/20/22 09/11/23 multivitamin with iron-mineral 1 tab PO DAILY 01/20/22 09/11/23 omega-3 fatty acids-fish oil 684 1 cap PO DAILY 01/20/22 09/11/23 mg-1,200 mg capsule,delayed release propranolol 20 mg tablet 20 mg PO BID 01/20/22 09/11/23 sumatriptan succinate 100 mg 100 mg PO Q2-4H PRN Migraine 01/20/22 09/11/23 tablet (Imitrex) Headache morphine 15 mg tablet,extended 15 mg PO Q12H 09/11/23 09/11/23 release Previous Rx's Medication Instructions Recorded amoxicillin 500 mg tablet 500 mg PO Q12H #14 tabs 09/11/23 methocarbamol 500 mg tablet 500 mg PO TID PRN muscle spasm #30 02/21/24 tabs Allergies Allergy/AdvReac Type Severity Reaction Status Date / Time gabapentin Allergy Intermediate Vomiting Verified 09/11/23 12:32 Patient History Medical History Vascular dementia Type 2 diabetes mellitus with hyperglycemia, without long-term current use of insulin Right-sided low back pain with sciatica Memory loss Environmental allergies Aortic valve stenosis, mild Obstructive sleep apnea Intractable headache Dyslipidemia Spondylarthritis Migraines Diabetes Dementia Social History household members: spouse Smoking Status: Never smoker Smoking Status: Never smoker alcohol intake frequency: holidays/special occasions only Exam Initial Vital Signs Initial Vital Signs: Vital Signs Temperature 97.9 F 02/21/24 06:49 Pulse Rate 59 L 02/21/24 06:49 Respiratory Rate 17 02/21/24 06:49 Blood Pressure 145/68 H 02/21/24 06:49 Pulse Oximetry 99 02/21/24 06:49 Oxygen Delivery Method Room Air 02/21/24 06:49 GENERAL: Alert pleasant 69-year-old female appears uncomfortable HEENT: Head atraumatic,EOMI, pupils reactive, face symmetric, [moist] mucous membranes CARDIOVASCULAR: Regular rate and rhythm +4/6 murmur systolic RESPIRATORY: Breath sounds equal bilaterally, no wheezes rales or rhonchi. ABDOMEN: Soft, nontender. Normoactive bowel sounds all 4 quadrants. No guarding or rebound. BACK: Midline vertebral tenderness thoracic area and lumbar area EXTREMITIES: Normal range of motion, no clubbing or edema. Neurovascularly intact Pelvis stable NEUROLOGICAL: Alert and oriented x4.Normal gait and speech. Cranial nerves II through XII grossly intact. SKIN: Warm, dry, no laceration, no petechiae, no rashes or lesions. Course Orders Ordered: ED Orders 02/21/24 07:37 CT lumbar spine wo con Stat CT thoracic spine wo con Stat 02/21/24 09:30 Urinalysis and Microscopic Stat 02/21/24 09:52 Consult to AOC DIRECTOR INTELLIGENCE OFFICER - Radiation Therapist Stat Consult to Occupational Therapy Evaluate & Treat Consult to Physical Therapy Evaluate & Treat 02/21/24 10:30 CBC Auto Diff [Complete Blood Count AUTO DIFF] Stat CMP [Comprehensive Metabolic Panel] Stat Discontinued Medications Hydromorphone HCl (Hydromorphone 1 Mg Inj) 1 mg IV NOW ONE Stop: 02/21/24 07:38 Last Admin: 02/21/24 07:44 Dose: 1 mg Documented By: NOHEMI Hydromorphone HCl (Hydromorphone 0.5 Mg Inj) 0.5 mg IV NOW ONE Stop: 02/21/24 09:06 Last Admin: 02/21/24 09:34 Dose: 0.5 mg Documented By: NOHEMI Ketorolac Tromethamine (Ketorolac 30 Mg/Ml Vial) 15 mg IV NOW ONE Stop: 02/21/24 09:06 Last Admin: 02/21/24 09:34 Dose: 15 mg Documented By: NOHEMI Vital Signs Vital signs: Vital Signs - 8 hr 02/21/24 06:49 02/21/24 06:59 02/21/24 07:00 Temperature 97.9 F Pulse Rate 59 L 53 L 54 L Respiratory Rate 17 Blood Pressure 145/68 H Pulse Oximetry 99 95 96 Oxygen Delivery Method Room Air 02/21/24 07:30 02/21/24 07:43 02/21/24 07:50 Temperature Pulse Rate 54 L 53 L Respiratory Rate 14 17 Blood Pressure 139/72 Pulse Oximetry 97 94 Oxygen Delivery Method 02/21/24 08:00 02/21/24 08:30 02/21/24 09:00 Temperature Pulse Rate 48 L 62 59 L Respiratory Rate 13 28 H 12 Blood Pressure Pulse Oximetry 98 98 98 Oxygen Delivery Method 02/21/24 09:33 02/21/24 09:34 02/21/24 09:34 Temperature Pulse Rate 57 L 59 L Respiratory Rate 12 15 Blood Pressure 168/70 H Pulse Oximetry 91 95 Oxygen Delivery Method 02/21/24 10:00 02/21/24 10:01 02/21/24 10:01 Temperature Pulse Rate 52 L 51 L Respiratory Rate 12 12 Blood Pressure 130/63 Pulse Oximetry 96 95 Oxygen Delivery Method 02/21/24 10:30 02/21/24 10:30 02/21/24 12:20 Temperature Pulse Rate 60 58 L Respiratory Rate 23 17 Blood Pressure 138/64 122/72 Pulse Oximetry 98 98 Oxygen Delivery Method Room Air MDM - Fall Lab Data 02/21/24 10:30 02/21/24 10:30 Labs: Lab Results 02/21/24 02/21/24 Range/Units 09:30 10:30 WBC 6.8 (4.5-11.0) X10^3/uL RBC 4.31 (4.0-5.2) X10^6/uL Hgb 13.8 (12.0-16.0) g/dL Hct 40.9 (36-46) % MCV 94.7 (80-100) fL MCH 32.0 (26-34) PG MCHC 33.7 (30-36) % RDW 13.4 (11.6-14.8) % Plt Count 219 (150-400) X10^3/uL Neut % (Auto) 56.9 (50-75) % Lymph % (Auto) 33.8 (25-40) % Henry % (Auto) 7.4 (3-14) % Eos % (Auto) 1.3 L (2-4) % Baso % (Auto) 0.6 (0-2) % Neut # (Auto) 3800 (2945-4198) /uL Lymph # (Auto) 2300 (7158-4155) /uL Henry # (Auto) 500 (0-900) /uL Eos # (Auto) 100 (0-450) /uL Baso # (Auto) 0 (0-100) /uL Sodium 141 (137-145) mmol/L Potassium 3.9 (3.4-5.1) mmol/L Chloride 106 (98-107) mmol/L Carbon Dioxide 28 (22-32) mmol/L BUN 13 (7-17) mg/dL Creatinine 0.54 (0.52-1.04) mg/dL Estimated GFR > 60 (>60) mL/min BUN/Creatinine Ratio 24.1 H (6-22) Glucose 125 H (80-110) mg/dL Calcium 9.3 (8.4-10.2) mg/dL Total Bilirubin 0.5 (0.2-1.3) mg/dL AST 25 (14-36) IU/L ALT 19 (<35) IU/L Alkaline Phosphatase 67 (38-126) U/L Total Protein 6.4 (6.3-8.2) g/dL Albumin 3.9 (3.5-5.0) g/dL Globulin 2.5 (1.7-4.1) g/dL Albumin/Globulin Ratio 1.6 (1.0-2.8) Urine Color Yellow Urine Appearance Clear Urine pH 7.5 (4.5-8.0) Ur Specific [place] <=1.005 (1.000-1.035) Urine Protein Negative (Negative) Urine Glucose (UA) Negative (Negative) g/dL Urine Ketones Negative (NEGATIVE) Urine Occult Blood Negative (Negative) Urine Nitrate Negative (Negative) Urine Bilirubin Negative (NEGATIVE) Urine Urobilinogen 0.2 (0.2) E.U./dL Ur Leukocyte Esterase Negative (NEGATIVE) Urine RBC None seen (0-5/HPF) Urine WBC None seen (0-5/HPF) Ur Squamous Epith Cells None seen (0-5/HPF) Urine Bacteria None seen (None) Ur Culture Indicated? Cult not indicated Vol Urine Centrifuged 10ml (spun) Imaging Data CT thoracic: Radiologist's Impression: PROCEDURE: CT THORACIC SPINE WO CON INDICATIONS: fall pain TECHNIQUE: Noncontrast 3 mm thick sections acquired through the region of interest in the thoracic spine. Sagittal and coronal reformats were then constructed. For radiation dose reduction, the following was used: automated exposure control. COMPARISON: [facility], CR, XR THORACIC SPINE 3V, 01/20/2022, 12:24. FINDINGS: Image quality: Excellent. Bones: There is [id number] kyphosis centered at T10 level. Age indeterminate anterior wedge compression deformity involving superior endplate of T11, T12 and L1 is seen with up to 40% loss of T11 and T12 vertebral body heights and up to 30% loss of L1 vertebral body height anteriorly. The T12 vertebral body compression fracture was noted on previous study in 2021 and is grossly unchanged. There is interval further loss of T11 vertebral body height. No suspicious sclerotic or lytic bony lesions. There is loss of disc height, vacuum disc phenomenon and degenerative endplate changes throughout thoracic spine. Slight retropulsion of teeth 11, T12 and L1 posterior lau are seen with very mild central canal stenosis at these levels. Soft tissues: No paravertebral masses or hematomas. Visualized posteromedial lungs appear clear. Postsurgical changes are noted in gallbladder fossa. IMPRESSION: 1. Chronic and stable appearing anterior wedge compression deformity involving superior endplate of T12 vertebral body unchanged from 2021 study. 2. Interval further loss of T11 vertebral body height. Interval development of superior endplate compression deformity at L1 level as above. 3. 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 No significant central canal stenosis or neural foraminal narrowing. Dictated by: Raúl Hayes M.D. on 02/21/2024 at 8:12 ct lumbar: Radiologist's Impression: PROCEDURE: CT LUMBAR SPINE WO CON INDICATIONS: fall pain TECHNIQUE: Noncontrast 3 mm thick sections acquired from the T12 level to the sacrum. Sagittal and coronal reformats were constructed. For radiation dose reduction, the following was used: automated exposure control. COMPARISON: [facility], CR, XR THORACIC SPINE 3V, 01/20/2022, 12:24. FINDINGS: Image quality: Excellent. Bones: There is normal bony alignment. Age indeterminate superior endplate compression deformity at L1, L3 and L5 levels are seen with up to 30% loss of L1 vertebral body height, up to 20% loss of L3 vertebral body height, and up to 25% loss of L5 vertebral body height. Slight retropulsion of posterior wall at L1 L3 and L5 levels causing mild central canal stenosis at these levels. No suspicious lytic or blastic bony lesions. No pars defects. T12-L1: No significant disc bulge, canal stenosis or neural foraminal narrowing. L1-L2: No significant disc bulge, canal stenosis or neural foraminal narrowing. L2-L3: Mild diffuse disc bulge and bilateral facet arthrosis with mild central canal stenosis and left-sided neural foraminal narrowing. L3-L4: Broad-based disc bulge and bilateral facet arthrosis with mild central canal stenosis and right worse than left bilateral neural foraminal narrowing. L4-L5: Broad-based disc bulge and bilateral facet arthrosis causing moderate central canal stenosis and moderate to severe right-sided neural foraminal narrowing. Moderate left-sided neural foraminal narrowing is also seen. L5-S1: Diffuse disc bulge and bilateral facet arthrosis with mild central canal stenosis and moderate right worse than left bilateral neural foraminal narrowing. Soft tissues: No retroperitoneal masses or hematomas. Visualized aorta is normal in caliber. IMPRESSION: 1. Age indeterminate superior endplate compression deformity at L1, L3 and L5 levels as described above. The compression deformity at L1 level was not seen on previous thoracic spine radiograph in 2021. Very slight retropulsion involving upper posterior wall of above-mentioned vertebral bodies causing very mild central canal stenosis at these levels. 2. Dqac-wg-vzmxhswa degenerative disc disease throughout lumbar spine causing various degrees of central canal stenosis and bilateral neural foraminal narrowing as described above. 3. No gross paraspinous soft tissue abnormalities. Dictated by: Raúl Hayes M.D. on 02/21/2024 at 8:19 [facility] Narrative Medical decision making narrative: MDM CC: Back pain Complicating co-morbidities: Mild dementia chronic back pain Medical records reviewed: Echo in 2021 does show aortic stenosis Exam documented above, pertinent findings include: Mildly confused appears in pain able to lift and move legs vertebral tenderness all along spell Lab Test results independently reviewed as above. Pertinent findings: WBC 6.8 hemoglobin 13.8 hematocrit 40.9 platelets 219 Sodium 141 potassium 3.9 chloride 106 carbon dioxide 28 BUN 13 creatinine 0.54 glucose 125 Urinalysis negative for UTI Imaging studies independently reviewed: CT thoracic stable appearing wedge compression deformity at T12 increased loss of T11 with compression on L1 CT lumbar compression deformities at L1-L3 and L5-L1 was not seen in the x-ray in 2021. Vtyp-dj-wafwoaig degenerative disease throughout lumbar spine varying degrees of canal stenosis Consultations: Social work PTOT she needs 1 person assistance difficult to redirect Treatments: Dilaudid Re-evaluations: Patient had Dilaudid and Toradol attempted ambulation. However she was a full 2 person assist in was not successful. Has been has a bad back not able to care for her at Discussion: 69-year-old female with acute on chronic pain. She fell this morning. CT does show significant degenerative changes previous compression fractures. It is possible the L1 is new. She also has worsening of the T11. He takes oxycodone home. Discussed with has been alone states he is trying to get patient into memory care he has been appointment set up for February 28. However with the worsening back pain he is concerned about taking her home. At this time patient is not a safe discharge unable to get out of bed safely needing a 2 person assist. Social work and physical therapy consulted PTOT consulted she actually was able to stand and walk she did not need 1 person to assist her. She really needs more help with redirection. Social work spoke with family, agreeable to go home looking into memory care. He called family for support. Her pain seems to be well-controlled at this time. I did discuss with him he may need orthopaedic spine surgery however he has more concerns of her memory at this time. She was able to stand and go to the commode independently. Discharge Plan Departure Patient Disposition: Home Clinical Impression: Acute exacerbation of chronic low back pain, Closed compression fracture of L1 vertebra, Compression fracture of T11 vertebra Activity Restrictions/Additional Instructions: *You have been diagnosed with acute on chronic back pain *What to do: It is possible she has new compression fractures at L1 and T11 but unclear. Keep doing what you are doing and trying to get her into memory care you are doing a great job *Continue to take medications as directed Continue oxycodone as prescribed Methocarbamol 500 mg 3 times a day if needed for muscle spasm *Follow up with your primary care provider in 2-3 days or call [phone] *Return to ER if you should have increasing confusion pain falling [or] any new, worsening or concerning symptoms Prescriptions: New methocarbamol 500 mg tablet 500 mg PO TID PRN (Reason: muscle spasm) Qty: 30 0RF No Action morphine 15 mg tablet extended release 15 mg PO Q12H amoxicillin 500 mg tablet 500 mg PO Q12H Qty: 14 0RF aspirin 81 mg Tablet,Delayed Release (Dr/Ec) 81 mg PO DAILY cyanocobalamin (vitamin B-12) 1,000 mcg Tablet 1,000 mcg PO DAILY methocarbamol 500 mg Tablet 1,000 mg PO TID PRN (Reason: Muscle Spasm) donepezil 10 mg Tablet 10 mg PO BEDTIME metformin 500 mg Tablet Extended Release 24 Hr 500 mg PO QPM Rx Instructions: With dinner multivitamin with iron-mineral Tablet 1 tab PO DAILY omega-3 fatty acids-fish oil 684-1,200 mg Capsule,Delayed Release(Dr/Ec) 1 cap PO DAILY sumatriptan succinate [Imitrex] 100 mg Tablet 100 mg PO Q2-4H MDD 200 PRN (Reason: Migraine Headache) Rx Instructions: do not exceed 2 doses per 24 hrs propranolol 20 mg Tablet 20 mg PO BID Referrals: Birgit Sampson MD [Primary Care Provider] - Stand Alone Forms: Patient Portal/API/Survey
[2024-02-21] MEDS: HYDROMORPHONE 1 MG INJ IV (07:44)
[2024-02-21] MEDS: KETOROLAC 30 MG/ML VIAL 15 MG IV (09:34)
[2024-02-21] MEDS: HYDROMORPHONE 0.5 MG INJ IV (09:34)
--- NOTE | 2024-02-21 09:35 | PC.NURSE ---
Full 2 person assist up to commode with stand and pivot, unable to walk after pain med administration.
[2024-02-21 09:45] LABS: Appearance Urine UA CLEAR; Bilirubin Urine UA NEGATIVE (NEGATIVE); Color Urine UA YELLOW; Glucose Urine UA NEGATIVE (Negative); Ketones Urine UA NEGATIVE (NEGATIVE); Leukocyte Esterase Urine UA NEGATIVE (NEGATIVE); Nitrite Urine UA NEGATIVE (Negative); Occult Blood Urine UA NEGATIVE (Negative); Protein Urine UA NEGATIVE (Negative); Specific Gravity Urine UA <=1.005 (1.000-1.035); Urobilinogen Urine UA 0.2 E.U./dL (0.2); pH Urine UA 7.5 (4.5-8.0)
[2024-02-21 09:58] LABS: Bacteria Urine None Seen; Culture Indicated Urine Cult Not Indicated; RBC Urine None Seen (0-5/HPF); Squamous Epithelial Cell Urine None Seen (0-5/HPF); Urine Volume 10mL (spun); WBC Urine None Seen (0-5/HPF)
--- NOTE | 2024-02-21 10:35 | PT.IIE ---
Medical History (Last Reviewed 02/21/24 @ 08:10 by Eun Lobo DO) Aortic valve stenosis, mild Dementia Diabetes Dyslipidemia Environmental allergies Intractable headache Memory loss Migraines Obstructive sleep apnea Right-sided low back pain with sciatica Spondylarthritis Type 2 diabetes mellitus with hyperglycemia, without long-term current use of insulin Vascular dementia Physical Therapy Inpatient Evaluation/Re-Eval M1 PT/OT-IP Prior Functional Status Start: 02/21/24 12:05 Freq: Status: Discharge Protocol: Document 02/21/24 12:06 [facility] (Rec: 02/21/24 12:28 [facility] [id number]) Medical Review Prior Functional Status Medical History Reviewed Yes Communication Pt has vascular dementia per pt's chart. Pt having difficulty to think and get her words out. Mobility and Gait Pt not able to state as very confused at this time. Pt appears to be using a walker lately due to her back pain. Activities of Daily Living and IADL's Per chart pt's assist with all of her needs due to dementia. Prior Functional Level (Other details) Information below based on last admission. Social History Household Members spouse Number of Floors (Floors) One Floor Number of Stairs To Enter/Railing? One step to enter. Home Environment Standard Height Toilet,Walk in Shower Home Equipment Hand Held Shower Additional Social History Comment Pt has a recliner. M2 PT-IP Current Condition Start: 02/21/24 14:40 Freq: Status: Active Protocol: Document 02/21/24 10:35 AB (Rec: 02/21/24 14:53 AB [id number]) Physical Therapy Current Condition Current Condition Evaluation Date 02/21/24 Treatment Diagnosis s/p fall; T12 compression fx; difficulty in walking Onset Date 02/21/24 M3 PT-IP Subjective Start: 02/21/24 14:40 Freq: Status: Active Protocol: Document 02/21/24 10:35 AB (Rec: 02/21/24 14:53 AB [id number]) Subjective Physical Therapy Visit Type Type Initial Evaluation Visit Start Time 10:35 Visit Stop Time 11:15 Number of SOLAR SYSTEM DESIGNER Visits 0 Physical Therapy Visit Comments Patient Comments agreeable to do PT Therapy Pain Assessment Pain When Pain Assessed During Mobility Pain Present Pain Present Pain Reported Location low back Scale Used pain scale not stated Pain Management Techniques Distraction,Modification of Treatment,Re-positioning, Timing of Activity with Medications M4 PT-IP Mobility and Gait Start: 02/21/24 14:40 Freq: Status: Active Protocol: Document 02/21/24 10:35 AB (Rec: 02/21/24 14:53 AB [id number]) PT-Bed Mobility Assessment Rolling Level of Assist Maximal Assistance Supine to Sit Supine to Sit Maximum Assistance Sit to Supine Sit to Supine Standby Assistance PT-Transfer Assessment Sit to and From Stand Sit to and from Stand Standby Assistance,Minimal Assistance Equipment Transfer Assistive Device Gait Belt,Front Wheeled Walker Orthotic/Prosthetic Devices or Brace: No Transfers Transfer Destination Bed,Bedside Commode Transfer Technique ambulated Transfer Ability Level of Assist Standby Assistance,Contact Guard Assistance,1 Person Assistance,Use of Upper Extremities Comments Mobility Comments pt supine in bed and agreed to do PT. obtained PLOF and home set up but pt with memory problems and unable to provide much info. obtained home set up from previous EMR. educated pt on back precautions and log roll bed mobility. completed supine to sit with initial attempt for log roll but pt unable to follow. required max A for supine to sit. able to sit on EOB SBA. completed sit to stand min A and ambulated in room using FWW CGA ~ 15 ft. pt requested to use the toilet. positioned bedside commode and pt ambulated to the commode CGA with max cues. pt with difficulty following directions and needs repeated instructions. sit to stand from the bedside commode SBA and ambulated back to bed using fWW SBA to CGA. sit to supine SBA. positioned pt in bed. call light and table placed within reach. Gait Assessment Gait Gait Assistance Required: Standby Assistance,Contact Guard Assist Distance (Feet) 15 Able to Maintain Weight Bearing Status Yes During Gait Assistive Devices Assistive Device Gait Belt,Front Wheeled Walker Orthotic/Prosthetic Devices or Brace: No Gait Deviations General Gait Pattern Decreased Stride Length, Decreased Feet Clearance, Flexed Trunk Factors Limiting Gait Function Factors Limiting Gait Function Decreased Activity Tolerance, Decreased Strength,Difficulty Following Directions,Limited Range of Motion,Pain,Poor Balance,Poor Safety Awareness PT-Balance Assessment Sitting Balance and Reactions Static Sitting Balance Ability Good Dynamic Sitting Balance Ability Good Standing Balance and Reactions Static Standing Balance Ability Fair Dynamic Standing Balance Ability Poor Device Used FWW M5 PT-IP Objective Assessments Start: 02/21/24 14:40 Freq: Status: Active Protocol: Document 02/21/24 10:35 AB (Rec: 02/21/24 14:53 AB [id number]) Orientation Orientation/Cognition Level of Alertness Confusional State Orientation Name Language Function Ability Hard of Hearing Safety Awareness Decreased Safety Awareness Memory Description Short Term Impaired,Credit Collections Analyst Impaired Comments pt with dx vascular dementia and with difficulty following instructions; needed one step commands with all tasks. Gross Range of Motion Lower Extremity ROM Assessment Within Functional Limits Strength Lower Extremity Strength Assessment Right Impaired Hip 4-/5 Knee 4-/5 Sensation Assessment Sensation Gross Sensation WNL Muscle Tone Muscle Tone WNL Yes M6 PT-IP Treatment Start: 02/21/24 14:40 Freq: Status: Active Protocol: Document 02/21/24 10:35 AB (Rec: 02/21/24 14:53 AB [id number]) Physical Therapy Treatment Education Education Provided Precautions,Safety M7 PT-IP Assessment and Plan Start: 02/21/24 14:40 Freq: Status: Active Protocol: Document 02/21/24 10:35 AB (Rec: 02/21/24 14:53 AB [id number]) PT Summary Assessment and Plan Potential Rehabilitation Potential Fair Status of Condition at Evaluation Evolving Summary Impairments Pain,ROM,Strength,Balance, Coordination,Sensation,Tone, Cognition,Bed Mobility, Transfers,Gait,Activity Tolerance Assessment Summary pt is a 69 y/o F s/p fall. ED eval order received to assess pt's mobiltiy. pt requiring max A for supine to sit and unable to adhere to log roll bed mobility. pt needed min A for sit to stand from EOB but only SBA from bedside commode. able to ambulate in room SBA to CGA. pt lives with spouse and has been assisting pt with needs. pt wants to go home. informed registered nurse hh case manager and nurse regarding pt's mobility. Goals Bed Mobility Goal Independent Transfer Goal Independent,Front Wheeled Walker Gait Goal Independent,Front Wheel Walker Gait Distance 150 Other Goals up/down 1 step SBA using FWW Days to Meet Goals 10 Frequency of Treatment Frequency Of Treatment Once a Day Treatment Plan Physical Therapy Treatment Plan Bed Mobility Training,Transfer Training,Gait Training, Therapeutic Exercise,Balance Retraining,Post Op Education, Discharge Planning,Hot or Cold Pack,Neuromuscular Re-ed, Coordination Retraining,Manual Therapy Precautions Other Precautions falls Recommendations To Nursing Amount of Assist Needed 1 Person Assist Discharge Recommendations PT Discharge Recommendations Home with 13/09 Assist Available,Home Health Transportation Needs at Discharge Private Vehicle
[2024-02-21 10:45] LABS: Add Manual Diff / Slide Review NO; Basophils Absolute Auto 0 /uL (0-100); Basophils Percent Auto 0.6 % (0-2); Eosinophils Absolute Auto 100 /uL (0-450); Eosinophils Percent Auto 1.3 % (2-4); Hematocrit 40.9 % (36-46); Hemoglobin 13.8 g/dL (12.0-16.0); Lymphocytes Absolute Auto 2300 /uL (1100-4500); Lymphocytes Percent Auto 33.8 % (25-40); Mean Corpuscular HGB Conc 33.7 % (30-36); Mean Corpuscular Volume 94.7 fL (80-100); Monocytes Absolute Auto 500 /uL (0-900); Monocytes Percent Auto 7.4 % (3-14); Neutrophils Absolute Auto 3800 /uL (1500-7000); Neutrophils Percent Auto 56.9 % (50-75); Platelet Count 219 X10^3/uL (150-400); Red Blood Cell Count 4.31 X10^6/uL (4.0-5.2); Red Cell Distribution Width 13.4 % (11.6-14.8); White Blood Cell Count 6.8 X10^3/uL (4.5-11.0)
[2024-02-21 10:59] LABS: Alanine Aminotransferase 19 IU/L (<35); Albumin 3.9 g/dL (3.5-5.0); Albumin Globulin Ratio 1.6 (1.0-2.8); Alkaline Phosphatase 67 U/L (38-126); Aspartate Aminotransferase 25 IU/L (14-36); BUN Creatinine Ratio 24.1 (6-22); Bilirubin Total 0.5 mg/dL (0.2-1.3); Blood Urea Nitrogen 13 mg/dL (7-17); Calcium 9.3 mg/dL (8.4-10.2); Carbon Dioxide 28 mmol/L (22-32); Chloride 106 mmol/L (98-107); Estimated Glomerular Filt Rate > 60 mL/min (>60); Globulin 2.5 g/dL (1.7-4.1); Glucose 125 mg/dL (80-110); HEMOLYSIS 27 (0-50); Potassium 3.9 mmol/L (3.4-5.1); Sodium 141 mmol/L (137-145); Total Protein 6.4 g/dL (6.3-8.2)
--- NOTE | 2024-02-21 11:15 | OT.IP.EVAL ---
Past Medical History (Last Reviewed 02/21/24 @ 08:10 by Eun Lobo DO) Aortic valve stenosis, mild Dementia Diabetes Dyslipidemia Environmental allergies Intractable headache Memory loss Migraines Obstructive sleep apnea Right-sided low back pain with sciatica Spondylarthritis Type 2 diabetes mellitus with hyperglycemia, without long-term current use of insulin Vascular dementia Occupational Therapy Inpatient Evaluation/Re-Eval M1 PT/OT-IP Prior Functional Status Start: 02/21/24 12:05 Freq: Status: Discharge Protocol: Document 02/21/24 12:06 [facility] (Rec: 02/21/24 12:28 [facility] [id number]) Medical Review Prior Functional Status Medical History Reviewed Yes Communication Pt has vascular dementia per pt's chart. Pt having difficulty to think and get her words out. Mobility and Gait Pt not able to state as very confused at this time. Pt appears to be using a walker lately due to her back pain. Activities of Daily Living and IADL's Per chart pt's assist with all of her needs due to dementia and back pain. Prior Functional Level (Other details) Information below based on last admission. Social History Household Members spouse Number of Floors (Floors) One Floor Number of Stairs To Enter/Railing? One step to enter. Home Environment Standard Height Toilet,Walk in Shower Home Equipment Hand Held Shower Additional Social History Comment Pt has a recliner. M2 OT-IP Current Condition Start: 02/21/24 12:05 Freq: Status: Discharge Protocol: Document 02/21/24 12:06 [facility] (Rec: 02/21/24 12:28 [facility] [id number]) Occupational Therapy Current Condition Current Condition Evaluation Date 02/21/24 Treatment Diagnosis Compression fx L1 Diagnosis Onset Date 02/21/24 Post Operative Precautions Lumbar Precautions Log Roll,No Twisting,Limit Bending,Lifting Restriction of 10 lbs,Gait Belt above Incisional Area M3 OT- IP Subjective and Pain Start: 02/21/24 12:05 Freq: Status: Discharge Protocol: Document 02/21/24 12:06 [facility] (Rec: 02/21/24 12:28 [facility] [id number]) OT- Subjective Occupational Therapy Visit Type Type Initial Evaluation Visit Start Time 10:45 Visit Stop Time 11:15 Occupational Therapy Visit Comments Patient Comments Pt looking for her and wanting to go home. Patient/Caregiver Goals TO go home. OT Pain Assessment Pain When Pain Assessed During Mobility Pain Present Pain Present Pain Reported Location low back Pain Behaviors Facial Grimacing,Holding Area M4 OT- IP ADL's Start: 02/21/24 12:05 Freq: Status: Discharge Protocol: Document 02/21/24 12:06 [facility] (Rec: 02/21/24 12:28 [facility] [id number]) OT [id number] Comments OT Self-Feeding Comments Not performed. OT ADL-Grooming Comments OT Grooming Comments Pt able to rub her hands together after giving her hand groutman for her hands after use of the BSC. OT ADL-Oral Care Comments Oral Care Comments NOt performed. OT ADL-Dressing General Eval Lower Body Dressing Ability Maximum Assistance Areas Needing Assistance Socks OT ADL-Toileting General Evaluation Toileting Ability Moderate Assistance Comments OT Toileting Comments Pt initially thinking of using her gown to wipe and then gave her tissues to use and able to wipe appropriately. Pt will need assist for completeness due to her dementia. OT ADL-Bathing Comments OT Bathing Comments Pt would benefit from a shower chair. M5 OT- IP IADL's Start: 02/21/24 12:05 Freq: Status: Discharge Protocol: Document 02/21/24 12:06 [facility] (Rec: 02/21/24 12:28 [facility] [id number]) OT-Instrumental Activities of Daily Living Home Safety Awareness Home Safety Comments Pt's assists with all her needs. Medication Management Medication Management Caregiver Administers Money Management Money Management Caregiver Provides Assistance Meal Preparation Meal Preparation Caregiver Provides Assist Stem Setter Stem Setter Caregiver Provides Assist M6 OT- IP Functional Cognition Start: 02/21/24 12:05 Freq: Status: Discharge Protocol: Document 02/21/24 12:06 [facility] (Rec: 02/21/24 12:28 [facility] [id number]) Cognitive Factors Limiting Selfcare Function Cognitive Ability Level of Alertness Confusional State Patient Orientation Name,Place Attention Span Ability Capable of Focused Attention, Unable to Focus,Unable to Sustain Attention Ability to Follow Commands Able to Follow One Step Commands with Increased Time, Able to Follow One Step Commands with Repetition Memory Description Short Term Impaired,Senior Living Impaired,Working Impaired Cognitive Comments Cognitive Assessment Comments Pt is has dementia and needing concrete simple cue to follow. Pt needing step by step instructions for use of the BSC and how to use the FWW. OT- Vision and Hearing OT- Vision Assessment Vision Assessment Comments Per last admission, pt used glasses all the time. M7 OT- IP Mobility and Balance Start: 02/21/24 12:05 Freq: Status: Discharge Protocol: Document 02/21/24 12:06 [facility] (Rec: 02/21/24 12:28 [facility] [id number]) OT- Bed Mobility Assessment Supine to Sit Supine to Sit Assist Maximum Assistance Sit to Supine Sit to Supine Assist Contact Guard Assistance OT-Transfer Assessment Sit to and From Stand Sit to and from Stand Minimal Assistance Transfers Transfer Ability Minimal Assistance Technique Transfer Destination Bed,Bedside Commode Transfer Technique Stand Step Pivot Devices Transfer Assistive Devices Gait Belt,Front Wheeled Walker Comments Mobility Comments MAXAX1 to get up from the bed and not able to follow commands for log rolling at this time. MURPHY to stand and assist to guide the FWW at times and assist for her balance. Pt tending to bump into objects and not aware with the FWW. OT- Balance Assessment Sitting Balance and Reactions Static Sitting Balance Ability Good Dynamic Sitting Balance Ability Fair Standing Balance and Reactions Static Standing Balance Ability Fair Dynamic Standing Balance Ability Poor M8 OT- IP Objective Assessments Start: 02/21/24 12:05 Freq: Status: Discharge Protocol: Document 02/21/24 12:06 [facility] (Rec: 02/21/24 12:28 [facility] [id number]) OT Strength Upper Extremity Strength Assessment Within Functional Limits OT- Coordination Assessment Comments Coordination Comments Pt not able to follow commands well able to do for right hand and then not able to follow for her left hand. OT Sensation Assessment Comments Summary Comments Pt not able to follow commands to perform. M9 OT- IP Assessment and Plan Start: 02/21/24 12:05 Freq: Status: Discharge Protocol: Document 02/21/24 12:06 [facility] (Rec: 02/21/24 12:28 [facility] [id number]) OT Summary Assessment and Plan Potential Rehabilitation Potential Fair Analytic Complexity at Evaluation Moderate Summary OT Impairments Balance,Functional Mobility, Self-Feeding,Grooming,Dressing ,Toileting,Bathing,Toilet Transfers,Shower Transfers, Activity Tolerance Progress Towards Goals Progressing Toward Goals Assessment Summary Pt main barriers are pain, prior history of dementia which make it hard for her to follow commands. Pt looking to go home and to have 13/09 assist. Per SW, pt's has refused home health and at this time looking to hire caregivers and eventually transition her to memory care. No further OT needs at this time as pt's refusing home health. Treatment Plan OT Treatment Plan Discharge Planning Discharge Recommendations OT Discharge Recommendations Home with 24/ Assist Available,Home Health Transportation Needs at Discharge Private Vehicle
--- NOTE | 2024-02-21 12:20 | PC.NURSE ---
Patient having difficulty following commands but appears to be more mobile at this time. She is able to get up and get dressed with assistance from . She walked without assistance to the wheelchair and then got into the truck with minimal assistance.
--- NOTE | 2024-02-21 12:25 | CM.SWNOTE ---
ED SENIOR RESEARCH EXECUTIVE Note Patient is 69 y/o female who presents to ED via EMS after unwitnessed GLF. Patient has hx of back pain after back fx several years ago and re-fractured a few years ago. Patient's PCP is Birgit Sampson, Patient has [facility] insurance. Patient has hx of Vascular Dementia, Compression Fracture of T11 vertebra, closed compression fracture of L1 vertebra, acute exacerbation of chronic lower back pain, hx of compression fracture of t12 vertebra, and type 2 Diabetes mellitus with hyperglycemia. SENIOR RESEARCH EXECUTIVE enters room to meet with patient, present in room is patient's spouse Luis Enrique. Patient presents as pleasant and allows patient's spouse to discuss patient care while patient contributes. Patient resides with spouse in [place], it is reported that patient's spouse assists with ADLs but recently it has become more than he can manage. Luis Enrique states that he is looking into memory care facilities for patient and has an upcoming tour next week. Luis Enrique states that he has arranged for his friend and brother to help out at home in the meantime, he states that he has scheduled to interview a caregiver soon as well. It is reported that patient rarely falls and utilizes FWW and/or canes to ambulate. In the ED patient was requiring a 1-2 person assist. Patient was evaluated by OT and PT, both recommend 24/7 care due to concern for patient's safety and are in agreement with LTC for patient. SENIOR RESEARCH EXECUTIVE offers HH to patient and spouse, and they decline. He reports that patient never started referral made in 2021 for [facility]. It is reported that patient's kids reside in [place] and are not aware of patient's care needs or involved in care. Patient and spouse endorse preference to d/c to home, there is not medical dx requiring admission at this time. Plan: patient to d/c to home upon medical clearance with spouse, spouse seeking out natural supports, hiring a caregiver and seeking higher level of care at memory facility for patient. Edwige Hamilton, SORTING GRAPPLE OPERATOR
== END 2024-02-21 12:22 | disposition home or self-care (01) ==
PROVIDERS: Emergency Provider Emergency Medicine; PCP Family Medicine
DX: S22.080A Wedge compression fracture of T11-T12 vertebra, initial encounter for closed fracture (principal); S32.010A Wedge compression fracture of first lumbar vertebra, initial encounter for closed fracture; G89.29 Other chronic pain; M54.9 Dorsalgia, unspecified; F03.A0 Unspecified dementia, mild, without behavioral disturbance, psychotic disturbance, mood disturbance, and anxiety; W18.30XA Fall on same level, unspecified, initial encounter
CPT/HCPCS: 36415; 72128; 72131; 80053; 81001; 85025; 96374; 96375; 96376; 97162; 97166; 97530; 99284; J1171; J1885

== ENCOUNTER → 2024-06-09 13:27 | Outpatient (CLI) | payer OTHER, SELFPAY ==
[2022-01-20 17:00] VITALS: BMI 24.2
--- NOTE | 2024-06-09 13:30 | DI.CT.S_ITS ---
PROCEDURE: CT LUMBAR SPINE WO CON INDICATIONS: COMPRESSED FX TECHNIQUE: Noncontrast 3 mm thick sections acquired from the T12 level to the sacrum. Sagittal and coronal reformats were constructed. For radiation dose reduction, the following was used: automated exposure control. COMPARISON: [facility], CT, CT LUMBAR SPINE WO CON, 02/21/2024, 7:41. FINDINGS: Image quality: Excellent. Bones: Straightening of the normal lumbar lordosis. Grade 1 anterolisthesis of L4 on L5. Mild levocurvature. Decreased osseous mineralization. Stable compression deformity of L1. New mild superior endplate compression deformity of L2. L3 compression deformity appears mildly increased compared to prior. New moderate compression deformity of L4. Stable mild compression deformity centrally of L5. Redemonstration of multilevel degenerative changes of the lumbar spine, similar compared to prior. No acute vertebral body compression fractures. No suspicious lytic or blastic bony lesions. No pars defects. Soft tissues: No retroperitoneal masses or hematomas. Visualized aorta is normal in caliber. Atherosclerotic vascular calcifications. Cholecystectomy. IMPRESSION: Multilevel compression deformities as described above which have progressed compared to prior. New mild superior endplate compression deformity of L2. New moderate compression deformity of L4. Mild progression of L3 compression deformity. Stable L1 and L5 compression deformities. Redemonstration of degenerative changes which are similar in appearance to prior. Dictated by: Jack Calderón M.D. on 06/11/2024 at 11:06 Approved by: Jack Calderón M.D. on 06/11/2024 at 11:10
--- NOTE | 2024-06-09 13:30 | DI.CT.S_ITS ---
PROCEDURE: CT THORACIC SPINE WO CON INDICATIONS: COMPRESSED FX TECHNIQUE: Noncontrast 3 mm thick sections acquired through the region of interest in the thoracic spine. Sagittal and coronal reformats were then constructed. For radiation dose reduction, the following was used: automated exposure control. COMPARISON: [facility], CT, CT THORACIC SPINE WO CON, 02/21/2024, 7:41. FINDINGS: Image quality: Excellent. Bones: Prominent kyphosis centered at the T10 level. Redemonstration of multilevel degenerative changes of the thoracic spine. No significant central canal or neural foraminal stenosis. Decreased osseous mineralization. Stable superior endplate compression deformities of T11, T12 and L1. No suspicious sclerotic or lytic bony lesions. Central spinal canal is of normal overall caliber. Soft tissues: No paravertebral masses or hematomas. Visualized posteromedial lungs appear clear. Stable left thyroid lobe nodule measuring approximately 1 cm. Atherosclerotic vascular calcifications. Severe coronary artery calcifications. Cholecystectomy. IMPRESSION: Stable compression deformities of T11, T12 and L1. Redemonstration of degenerative changes of the thoracic spine without significant central canal or neural foraminal stenosis. Dictated by: Jack Calderón M.D. on 06/11/2024 at 10:59 Approved by: Jack Calderón M.D. on 06/11/2024 at 11:06
== END ==
PROVIDERS: PCP Family Medicine; Referring Provider Family Medicine; Visit Provider Physician Assistant
DX: M43.16 Spondylolisthesis, lumbar region (principal); S22.080A Wedge compression fracture of T11-T12 vertebra, initial encounter for closed fracture; S32.010D Wedge compression fracture of first lumbar vertebra, subsequent encounter for fracture with routine healing; M47.814 Spondylosis without myelopathy or radiculopathy, thoracic region; M47.816 Spondylosis without myelopathy or radiculopathy, lumbar region; M43.8X6 Other specified deforming dorsopathies, lumbar region
CPT/HCPCS: 72128; 72131

== ENCOUNTER 2024-06-21 16:20 | Emergency (ER) | payer OTHER, SELFPAY ==
[2022-01-20 17:00] VITALS: BMI 24.2
[2024-06-21] VITALS (10 sets, daily range): BP systolic 118–150; BP diastolic 56–66; PULSE 45–65; RESP 12–28; TEMP 36.6; O2SAT 94–99
[2024-06-21 20:44] LABS: Urine Volume 10mL (spun)
[2024-06-21 20:45] LABS: Amorphous Sediment Urine 1+; Bacteria Urine Few (2-10); RBC Urine None Seen (0-5/HPF); Squamous Epithelial Cell Urine 1-5 /HPF (0-5/HPF); WBC Urine 5-10/HPF (0-5/HPF)
[2024-06-21 20:46] LABS: Culture Indicated Urine Specimen Cultured
--- NOTE | 2024-06-21 21:07 | PC.NURSE ---
daughter aide relayed the information that the pt will be having a consult with [facility] in the near future. The daughter has stated that the Luis Enrique is primary resident care aide and is not able to care for her anymore. The daughter states the reason for hospice is to keep her comfortable. According to the daughter the patient is DNR and DNI and the is the DPOA with the docs signed.
--- NOTE | 2024-06-21 21:19 | DI.CT.S_ITS ---
PROCEDURE: CT THORACIC SPINE WO CON INDICATIONS: worsening pain TECHNIQUE: Noncontrast 3 mm thick sections acquired through the region of interest in the thoracic spine. Sagittal and coronal reformats were then constructed. For radiation dose reduction, the following was used: automated exposure control. COMPARISON: [facility], CT, CT THORACIC SPINE WO CON, 02/21/2024, 7:41. [facility], CT, CT THORACIC SPINE WO CON, 06/09/2024, 13:37. FINDINGS: Image quality: Excellent. Bones: T11, T12, L1, L2, L3 compression fractures are unchanged. Multilevel DDD. There is normal overall bony alignment. No suspicious sclerotic or lytic bony lesions. Central spinal canal is of normal overall caliber. Soft tissues: No paravertebral masses or hematomas. Visualized posteromedial lungs appear clear. Aortic valvular calcifications. Post cholecystectomy. IMPRESSION: No interval change. No acute osseous abnormality. Multiple thoracolumbar spine vertebral body compression fractures. Dictated by: Marco Funk M.D. on 06/21/2024 at 22:17 Approved by: Marco Funk M.D. on 06/21/2024 at 22:22
--- NOTE | 2024-06-21 21:19 | DI.CT.S_ITS ---
PROCEDURE: CT LUMBAR SPINE WO CON INDICATIONS: worsening pain TECHNIQUE: Noncontrast 3 mm thick sections acquired from the T12 level to the sacrum. Sagittal and coronal reformats were constructed. For radiation dose reduction, the following was used: automated exposure control. COMPARISON: [facility], CT, CT THORACIC SPINE WO CON, 06/09/2024, 13:37. [facility], CT, CT THORACIC SPINE WO CON, 06/21/2024, 21:35. [facility], CT, CT LUMBAR SPINE WO CON, 06/09/2024, 13:37. FINDINGS: Image quality: Excellent. Bones: There is normal bony alignment. L1-L5 vertebral body compression fractures. No interval change. Disc space heights are unchanged. No suspicious lytic or blastic bony lesions. No pars defects. Soft tissues: No retroperitoneal masses or hematomas. Post cholecystectomy. Visualized aorta is normal in caliber. IMPRESSION: No interval change. L1-L5 vertebral body compression fractures. Dictated by: Marco Funk M.D. on 06/21/2024 at 22:22 Approved by: Marco Funk M.D. on 06/21/2024 at 22:31
--- NOTE | 2024-06-21 22:20 | ED.BACK ---
HPI - Back Pain/Injury General Chief Complaint: Back Pain/Injury Stated Complaint: back px x7days Time Seen by Provider: 06/21/24 19:39 Source: patient History of Present Illness HPI Narrative: 69-year-old female with a history of vascular dementia with history of stable compression deformities of T11-T12 and L1 and new mild superior endplate compression deformity of L2 which were completed on June 11 here in the ER already on morphine extended release and oxycodone for breakthrough pain also given methocarbamol for pain control but today has had worsening pain with ambulation brought in for further evaluation and by [facility] power of drapery and 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 Patient is pleasantly demented and can follow simple instructions but can not answer all questions completely. Related Data Home Medications Medication Instructions Recorded Confirmed aspirin 81 mg tablet,delayed 81 mg PO DAILY 01/20/22 09/11/23 release cyanocobalamin (vitamin B-12) 1,000 mcg PO DAILY 01/20/22 09/11/23 1,000 mcg tablet donepezil 10 mg tablet 10 mg PO BEDTIME 01/20/22 09/11/23 metformin 500 mg tablet,extended 500 mg PO QPM 01/20/22 09/11/23 release 24 hr methocarbamol 500 mg tablet 1,000 mg PO TID PRN Muscle Spasm 01/20/22 09/11/23 multivitamin with iron-mineral 1 tab PO DAILY 01/20/22 09/11/23 omega-3 fatty acids-fish oil 684 1 cap PO DAILY 01/20/22 09/11/23 mg-1,200 mg capsule,delayed release propranolol 20 mg tablet 20 mg PO BID 01/20/22 09/11/23 sumatriptan succinate 100 mg 100 mg PO Q2-4H PRN Migraine 01/20/22 09/11/23 tablet (Imitrex) Headache morphine 15 mg tablet,extended 15 mg PO Q12H 09/11/23 09/11/23 release Previous Rx's Medication Instructions Recorded amoxicillin 500 mg tablet 500 mg PO Q12H #14 tabs 09/11/23 methocarbamol 500 mg tablet 500 mg PO TID PRN muscle spasm #30 02/21/24 tabs fentanyl 25 mcg/hr transdermal 1 patch transdermal Q72H #5 ea 06/21/24 patch sulfamethoxazole 800 1 tab PO BID #10 tabs 06/21/24 mg-trimethoprim 160 mg tablet (Bactrim DS) Allergies Allergy/AdvReac Type Severity Reaction Status Date / Time gabapentin Allergy Intermediate Vomiting Verified 06/21/24 16:30 Review of Systems Review of Systems ROS Unobtainable: Unobtainable due to mental status/LOC Patient History Medical History Vascular dementia Type 2 diabetes mellitus with hyperglycemia, without long-term current use of insulin Right-sided low back pain with sciatica Memory loss Environmental allergies Aortic valve stenosis, mild Obstructive sleep apnea Intractable headache Dyslipidemia Spondylarthritis Migraines Diabetes Dementia Social History household members: spouse Smoking Status: Unknown if ever smoked Smoking Status: Unknown if ever smoked alcohol intake frequency: holidays/special occasions only Exam Narrative Exam Narrative: GENERAL: [69] year old patient appears stated age. Well-developed patient, in mild distress. HEAD: Atraumatic. Normocephalic. EYES: Pupils equal round and reactive. Extraocular motions intact. No scleral icterus. No injection or drainage. ENT: Nose without bleeding, purulent drainage. Throat without erythema, tonsillar hypertrophy or exudate. Airway patent. NECK: Trachea midline. Non tender CARDIOVASCULAR: Regular rate and rhythm without murmurs, gallops, or rubs. RESPIRATORY: Clear to auscultation. Breath sounds equal bilaterally. No wheezes, rales, or rhonchi. GASTROINTESTINAL: Abdomen soft, non-tender, nondistended. EXTREMITIES: No edema or joint tenderness. BACK: No flank tenderness. Mild TTP TP 7-8 and L 2-4 with no creptius or stepoff on exam NEURO: AOx1/ gcs 15 moving all extremities spontaneously SKIN: No rash or erythema of visible areas Initial Vital Signs Initial Vital Signs: Vital Signs Temperature 98 F 06/21/24 16:27 Pulse Rate 65 06/21/24 16:27 Respiratory Rate 17 06/21/24 16:27 Blood Pressure 118/56 L 06/21/24 16:27 Pulse Oximetry 97 06/21/24 16:27 Oxygen Delivery Method Room Air 06/21/24 16:27 Course Orders Ordered: ED Orders 06/21/24 20:14 Urine Culture Stat Urine Microscopic Stat 06/21/24 21:19 CT lumbar spine wo con Stat CT thoracic spine wo con Stat Vital Signs Vital signs: Vital Signs - 8 hr 06/21/24 16:27 06/21/24 19:44 06/21/24 19:44 Temperature 98 F Pulse Rate 65 51 L Respiratory Rate 17 Blood Pressure 118/56 L 135/65 Pulse Oximetry 97 98 Oxygen Delivery Method Room Air 06/21/24 20:00 06/21/24 20:30 06/21/24 20:48 Temperature Pulse Rate 51 L 51 L 48 L Respiratory Rate 18 18 Blood Pressure Pulse Oximetry 98 97 99 Oxygen Delivery Method 06/21/24 20:48 06/21/24 21:01 06/21/24 21:01 Temperature Pulse Rate 48 L Respiratory Rate 24 Blood Pressure 150/66 H 122/58 L Pulse Oximetry 95 Oxygen Delivery Method 06/21/24 21:30 06/21/24 21:30 06/21/24 22:00 Temperature Pulse Rate 49 L 45 L Respiratory Rate 14 12 Blood Pressure 119/56 L Pulse Oximetry 96 94 Oxygen Delivery Method MDM - Back Pain/Injury Lab Data Labs: Lab Results 06/21/24 Range/Units 20:14 Urine RBC None seen (0-5/HPF) Urine WBC 5-10/hpf H (0-5/HPF) Ur Squamous Epith Cells 1-5 /hpf (0-5/HPF) Amorphous Sediment 1+ Urine Bacteria Few (2-10) H (None) Ur Culture Indicated? Specimen cultured Vol Urine Centrifuged 10ml (spun) Urine Dip Bedside Urine Glucose Negative Bedside Urine Bilirubin - Negative Bedside Urine Ketone - Negative Urine Specific [place] 1.005 Bedside Urine Occult Blood - Negative Bedside Urine pH 6.0 Bedside Urine Protein - Negative Bedside Urine Urobilinogen - Negative Bedside Urine Nitrite - Negative Bedside Urine Leukocytes + [address] scan - abdomen/pelvis: Radiologist's Impression: [address] [address] [address] Scan Report Signed Patient: Royal Dilia Shaver (Chelly) MR#: [id number] : 1955 Acct:[id number] Age/Sex: 69 / F Date of Service: 06/21/24 Loc: ED Accession Number: [id number] Procedure: CT thoracic spine wo con Ordering Provider: Nick Saini D.O. PROCEDURE: CT THORACIC SPINE WO CON INDICATIONS: worsening pain TECHNIQUE: Noncontrast 3 mm thick sections acquired through the region of interest in the thoracic spine. Sagittal and coronal reformats were then constructed. For radiation dose reduction, the following was used: automated exposure control. COMPARISON: [facility], CT, CT THORACIC SPINE WO CON, 02/21/2024, 7:41. [facility], CT, CT THORACIC SPINE WO CON, 06/09/2024, 13:37. FINDINGS: Image quality: Excellent. Bones: T11, T12, L1, L2, L3 compression fractures are unchanged. Multilevel DDD. There is normal overall bony alignment. No suspicious sclerotic or lytic bony lesions. Central spinal canal is of normal overall caliber. Soft tissues: No paravertebral masses or hematomas. Visualized posteromedial lungs appear clear. Aortic valvular calcifications. Post cholecystectomy. IMPRESSION: No interval change. No acute osseous abnormality. Multiple thoracolumbar spine vertebral body compression fractures. Dictated by: Marco Funk M.D. on 06/21/2024 at 22:17 Approved by: Marco Funk M.D. on 06/21/2024 at 22:22 [place] [address] CT Scan Report Signed Patient: Royal Dilia Shaver (Chelly) MR#: [id number] : 1955 Acct:[id number] Age/Sex: 69 / F Date of Service: 06/21/24 Loc: ED Accession Number: [id number] Procedure: CT lumbar spine wo con Ordering Provider: Nick Saini D.O. PROCEDURE: CT LUMBAR SPINE WO CON INDICATIONS: worsening pain TECHNIQUE: Noncontrast 3 mm thick sections acquired from the T12 level to the sacrum. Sagittal and coronal reformats were constructed. For radiation dose reduction, the following was used: automated exposure control. COMPARISON: [facility], CT, CT THORACIC SPINE WO CON, 06/09/2024, 13:37. [facility], CT, CT THORACIC SPINE WO CON, 06/21/2024, 21:35. [facility], CT, CT LUMBAR SPINE WO CON, 06/09/2024, 13:37. FINDINGS: Image quality: Excellent. Bones: There is normal bony alignment. L1-L5 vertebral body compression fractures. No interval change. Disc space heights are unchanged. No suspicious lytic or blastic bony lesions. No pars defects. Soft tissues: No retroperitoneal masses or hematomas. Post cholecystectomy. Visualized aorta is normal in caliber. IMPRESSION: No interval change. L1-L5 vertebral body compression fractures. Dictated by: Marco Funk M.D. on 06/21/2024 at 22:22 Approved by: Marco Funk M.D. on 06/21/2024 at 22:31 MDM Narrative Medical decision making narrative: Vital signs, nurse triage note, medication list, all imaging studies and all previous visits reviewed. Patient was given Percocet and Bactrim here and will be discharged on Bactrim and fentanyl patch. Differential diagnosis include acute on chronic back pain secondary to new fractures UTI back spasm arthritis. Discharge Plan Departure Patient Disposition: Home Clinical Impression: Acute UTI, Acute exacerbation of chronic low back pain Instructions: DI for Low Back Pain Activity Restrictions/Additional Instructions: Return with new or worsening symptoms. Take your medicines as directed. And follow up with chronic pain management appointment Prescriptions: New sulfamethoxazole-trimethoprim [Bactrim DS] 800-160 mg tablet 1 tab PO BID Qty: 10 0RF fentanyl 25 mcg/hr patch 72 hour 1 patch transdermal Q72H Qty: 5 0RF No Action morphine 15 mg tablet extended release 15 mg PO Q12H amoxicillin 500 mg tablet 500 mg PO Q12H Qty: 14 0RF methocarbamol 500 mg tablet 500 mg PO TID PRN (Reason: muscle spasm) Qty: 30 0RF aspirin 81 mg Tablet,Delayed Release (Dr/Ec) 81 mg PO DAILY cyanocobalamin (vitamin B-12) 1,000 mcg Tablet 1,000 mcg PO DAILY methocarbamol 500 mg Tablet 1,000 mg PO TID PRN (Reason: Muscle Spasm) donepezil 10 mg Tablet 10 mg PO BEDTIME metformin 500 mg Tablet Extended Release 24 Hr 500 mg PO QPM Rx Instructions: With dinner multivitamin with iron-mineral Tablet 1 tab PO DAILY omega-3 fatty acids-fish oil 684-1,200 mg Capsule,Delayed Release(Dr/Ec) 1 cap PO DAILY sumatriptan succinate [Imitrex] 100 mg Tablet 100 mg PO Q2-4H MDD 200 PRN (Reason: Migraine Headache) Rx Instructions: do not exceed 2 doses per 24 hrs propranolol 20 mg Tablet 20 mg PO BID Referrals: Birgit Sampson MD [Primary Care Provider] - Stand Alone Forms: Patient Portal/API/Survey
[2024-06-21] MEDS: TRIMETH/SULFA 160/800 (DS) TABLET 1 TAB PO (22:45)
[2024-06-21] MEDS: OXYCODONE/ACETAMINOPHEN 5/325 TABLET 1 TAB PO (22:45)
== END 2024-06-21 23:03 | disposition home or self-care (01) ==
PROVIDERS: Emergency Provider Family Medicine; PCP Family Medicine
DX: N39.0 Urinary tract infection, site not specified (principal); M54.50 Low back pain, unspecified
CPT/HCPCS: 72128; 72131; 81003; 81015; 87086; 99283; 99284